=== PATIENT | male | born 1950 | race Caucasian/White ===

== ENCOUNTER 2020-04-15 22:30 | Emergency (ER) | payer MEDICARE, MEDICAID ==
[2020-04-15 23:04] LABS: ABSOLUTE BASOPHILS # (AUTO) 0.1 10^3/uL (0.0-0.2); ABSOLUTE EOSINOPHILS # (AUTO) 0.1 10^3/uL (0.0-0.6); ABSOLUTE LYMPHOCYTES (AUTO) 0.5 10^3/uL (0.5-4.7); ABSOLUTE MONOCYTES (AUTO) 0.5 10^3/uL (0.1-1.4); ABSOLUTE NEUT (AUTO) 5.1 10^3/uL (1.7-8.2); BASOPHILS % (AUTO) 1.1 % (0-2); EOSINOPHILS % (AUTO) 1.5 % (0-6); HEMATOCRIT 17.8 % (37.9-51.0); LYMPHOCYTES % (AUTO) 8.4 % (13-45); MEAN CORPUSCULAR HEMOGLOBIN 32.6 pg (27.0-33.4); MEAN CORPUSCULAR VOLUME 102 fl (80-97); MONOCYTES % (AUTO) 7.8 % (3-13); PLATELET COUNT 211 10^3/uL (150-450); RED BLOOD COUNT 1.75 10^6/uL (4.35-5.55); RED CELL DISTRIBUTION WIDTH 21.4 % (11.5-14.0); SEGMENTED NEUTROPHILS % (AUTO) 81.2 % (42-78); TOTAL CELLS COUNTED % (AUTO) 100 %; WHITE BLOOD COUNT 6.2 10^3/uL (4.0-10.5)
--- NOTE | 2020-04-15 23:04 | ER Document Report ---
ED General - Related Data Home Medications: Oxygen dependent at 2 L per nasal cannula, Xarelto 5 mg twice a day, vitamin C 250 mg daily, aspirin 81 mg daily, Colace twice daily, ferrous sulfate 325 mg twice a day, Flomax 0.4 mg daily, Lasix 40 mg twice daily, DuoNeb every 6 hours as needed for shortness of breath, lactulose 30 mg liters 3 times a day, Lipitor 40 mg daily, potassium 20 mEq daily, pro-stat liquid 30 mL twice a day, Spironolactone 25 mg daily, Synthroid 75 mcg daily, thiamine 100 mg daily, Ultram 50 mg every 12 hours as needed, zinc sulfate 220 mg daily <SOPHIE DE LOS SANTOS - Last Filed: 04/16/20 01:50> <KARLENE ESPINOZA JR - Last Filed: 04/16/20 04:22> - General Stated Complaint: CARDIAC ISSUE Time Seen by Provider: 04/15/20 22:41 Primary Care Provider: JAMES STYLES MD [Primary Care Provider] - Follow up as needed - [facility] Notes: Patient is a 69-year-old male, brought into the emergency department [facility]. History of present illness is obtained entirely from EMS. Evidently he was diuresed recently secondary to edema in his arms and legs. He was given a large dose of IV Lasix, his Lasix wa s improved. Evidently the patient went unresponsive tonight when being moved up in the bed. His heart rate went high, his blood pressure went low. EMS found the patient to be in V. tach. He was converted to atrial fibrillation after synchronized cardioversion by EMS. Patient denies any pain. He is on blood thinners. He states he vomits frequently, but denies any hematemesis or coffee-ground emesis. He is unsure as to whether or not his stools are dark, states he has intermittent incontinence issues. (SOPHIE DE LOS SANTOS) - Related Data Allergies/Adverse Reactions: No Known Allergies Allergy (Unverified 04/15/20 23:43) Past Medical History - General Information source: Patient, Outside Facility Records - Social History Smoking Status: Former Smoker Frequency of alcohol use: Former alcoholic - Medical History Medical History: Other - Past Medical History Cardiac Medical History: Reports: Hx Atrial Fibrillation, Hx Congestive Heart Failure, Hx DVT, Hx Hypertension, Hx Peripheral Vascular Disease, Other - V entricular tachycardia Pulmonary Medical History: Reports: Other - Pulmonary hypertension Neurological Medical History: Reports: Hx Cerebrovascular Accident Endocrine Medical History: Reports: Hx Hypothyroidism Renal/ Medical History: Reports: Hx Kidney Stones, Other - Urinary retention GI Medical History: Reports: Hx Cirrhosis, Hx Liver Failure, Other - Esophageal varices Psychiatric Medical History: Reports: Hx Dementia <SOPHIE DE LOS SANTOS - Last Filed: 04/16/20 01:50> - Social History Cigarette use (# per day): Yes Chew tobacco use (# tins/day): No Smoking Education Provided: Yes Frequency of alcohol use: Former alcoholic Lives with: Detention Family History: Reviewed & Not Pertinent <KARLENE ESPINOZA JR - Last Filed: 04/16/20 04:22> Physical Exam <SOPHIE DE LOS SANTOS - Last Filed: 04/16/20 01:50> - Vital signs Vitals: Resp Pulse Ox 18 99 04/15/20 22:33 04/15/20 22:33 - Notes Notes: This is a pale 69-year-old gentleman who appears much older than his stated age, in no acute distress. Vital signs reviewed, please refer to chart. Head is normocephalic, atraumatic. Pupils equal round, reactive to light. Neck is supple without meningismus. Heart is irregularly irregular. Lungs are clear to auscultation bilaterally. Abdomen is obese, positive fluid wave nontender, normoactive bowel sounds throughout. Extremities without cyanosis, clubbing. Posterior calves are nontender. Peripheral pulses are equal. Skin is warm and dry. Patient is awake, alert, cooperative with examiner. He is oriented to place, disoriented to person and time. (SOPHIE DE LOS SANTOS) Course - Laboratory Result Diagrams: 04/15/20 22:53 04/15/20 22:53 - Diagnostic Test Radiology reviewed: Image reviewed <SOPHIE DE LOS SANTOS - Last Filed: 04/16/20 01:50> - Laboratory Result Diagrams: 04/16/20 03:35 04/15/20 22:53 <KARLENE ESPINOZA JR - Last Filed: 04/16/20 04:22> - Re-evaluation Re-evalutation: 04/15/20 23:44 Patient presents to the emergency department for evaluation. It was reported he had an arrhythmia, he underwent synchronized cardioversion in the field. On arrival he was in atrial fibrillation. His heart rates have been between 85 and 120. His blood pressures have been low, but his maps have been 60 and above. The patient is awake and alert, if not confused. He is very pale. Laboratory investigations revealed a hemoglobin just under 6. Type and cross for 2 units was ordered. At that point rectal exam was performed, he was found to have melena. Protonix was ordered. This patient does have a known history of esophageal varices. He is on Xarelto. We do not have a surgeon on who does endoscopy, we do not have gastroenterology communication analyst. For all of these reasons, will contact another facility for transfer. 04/15/20 23:59 Patient's blood pressures remain low. His INR comes back over 2, he is also on Xarelto. Will order FFP. 04/16/20 00:[address] Barrera. He agrees that patient needs transfer to a facility with gastroenterology/endoscopy ability emergently. He asked that the patient be given octreotide and Kcentra. We will transfuse patient, try and make him more stable, and I will reach out again to [facility] to transfer the patient. Currently the patient has 2 20-gauge IVs, will have nursing attempt an 18-gauge. I have faxed order to pharmacy for K Centra 25 units/kg. Patient is currently stable. 04/16/20 01:34 Patient's blood pressure is improved to 107/56. His heart rate remains in the 60s. Blood is infusing. FFP is infusing. Given his history of alcoholic cir rhosis and varices, we will go ahead and treat with Rocephin. His chest x-ray is interpreted by radiology as showing bilateral pneumonia. The patient is oxygenating at 100% on his normal 2 L. He is not more short of breath. Clinically I do not believe that he has a bacterial pneumonia. I will get head and order a rapid COVID test to be performed prior to transfer. Patient has improved significantly. Things patient before we officially excepted (SOPHIE DE LOS SANTOS) - Vital Signs Vital signs: Temp Pulse Resp BP Pulse Ox 98.1 F 85 16 114/60 100 04/16/20 04:01 04/16/20 03:31 04/16/20 04:01 04/16/20 04:01 04/16/20 04:01 - Laboratory Laboratory results interpreted by me: 04/15/20 04/15/20 04/15/20 22:53 22:53 22:53 RBC 1.75 L Hgb 5.7 L Hct 17.8 L MCV 102 H RDW 21.4 H Plt Count Lymph % (Auto) 8.4 L Seg Neutrophils % 81.2 H PT 27.2 H Sodium 129.1 L Carbon Dioxide 21 L BUN 29 H Calcium 7.4 L Ammonia Total Protein 5.5 L Albumin 2.2 L Crossmatch 04/15/20 04/15/20 04/16/20 22:53 23:13 03:35 RBC 2.55 L Hgb 8.0 L D Hct 24.3 L MCV RDW 21.2 H Plt Count 143 L Lymph % (Auto) 7.3 L Seg Neutrophils % 83.8 H PT Sodium Carbon Dioxide BUN Calcium Ammonia < 8.7 L Total Protein Albumin Crossmatch See Detail - EKG Interpretation by Me Additional EKG results interpreted by me: 04/15/20 23:52 Atrial fibrillation with a rate of 123 bpm, PVCs noted. Left axis deviation. Low voltage across the anterior chest leads. Nonspecific ST changes, no acute changes concerning for ischemia or infarction. No old studies available for comparison. (SOPHIE DE LOS SANTOS) Critical Care Note - Critical Care Note Total time excluding time spent on procedures (mins): 50 <SOPHIE DE LOS SANTOS - Last Filed: 04/16/20 01:50> <KARLENE ESPINOZA JR - Last Filed: 04/16/20 04:22> - Critical Care Note Comments: Please note I evaluated this patient just prior to frequently taking him away from ER. This time. Is 0 418 (KARLENE ESPINOZA JR) Discharge <SOPHIE DE LOS SANTOS - Last Filed: 04/16/20 01:50> <KARLENE ESPINOZA JR - Last Filed: 04/16/20 04:22> - Discharge Clinical Impression: Severe anemia, Upper GI bleeding, Anticoagulant long-term use, Hypotension Condition: Stable Disposition: [facility] Referrals: JAMES STYLES MD [Primary Care Provider] - Follow up as needed
[2020-04-15 23:07] LABS: HEMOGLOBIN 5.7 g/dL (13.5-17.0)
[2020-04-15] MEDS ORDERED: NORMAL SALINE 250 ML IV PRN ×4 (23:13→23:55)
[2020-04-15] MEDS ORDERED: PANTOPRAZOLE SODIUM 40 MG VIAL IV ONE (23:13)
[2020-04-15 23:14] LABS: INTERNATIONAL RATION (INR) 2.47; PROTHROMBIN TIME 27.2 SEC (11.4-15.4)
[2020-04-15 23:20] LABS: ALBUMIN 2.2 g/dL (3.5-5.0); ALKALINE PHOSPHATASE 126 U/L (38-126); ANION GAP 9 (5-19); ASPARTATE AMINO TRANSFERASE 38 U/L (17-59); BILIRUBIN,DIRECT 0.2 mg/dL (0.0-0.4); BILIRUBIN,TOTAL 0.9 mg/dL (0.2-1.3); BLOOD UREA NITROGEN 29 mg/dL (7-20); CALCIUM 7.4 mg/dL (8.4-10.2); CARBON DIOXIDE 21 mmol/L (22-30); CHLORIDE 99 mmol/L (98-107); GLUCOSE 109 mg/dL (75-110); POTASSIUM 3.6 mmol/L (3.6-5.0); TOTAL PROTEIN 5.5 g/dL (6.3-8.2)
[2020-04-15] MEDS ORDERED: NORMAL SALINE 1000 ML 1,000 ML IV ONE (23:48)
--- NOTE | 2020-04-15 23:53 | RADIOLOGY REPORT (SQ) ---
EXAM DESCRIPTION: XR CHEST 1 VIEW COMPLETED DATE/TME: 04/15/2020 22:41 CLINICAL HISTORY: 69 years, Male, unresponsive episode COMPARISON: None. NUMBER OF VIEWS: TECHNIQUE: LIMITATIONS: None. FINDINGS: There is bilateral pulmonary infiltrate, right side more apparent than left, compatible with pneumonia. There is a small right pleural effusion. There is cardiomegaly. Pulmonary vascularity appears normal. The mediastinum is unremarkable. IMPRESSION: Bilateral pneumonia. copyright 2010 [employer]- All Rights Reserved
[2020-04-16] MEDS ORDERED: OCTREOTIDE ACETATE INJ/PF 100 MCG/1 ML SDV IV ONE (00:13)
[2020-04-16] MEDS ORDERED: NORMAL SALINE 500 ML with OCTREOTIDE ACETATE 500 MCG IV PRN ×2 (00:13)
[2020-04-16] MEDS ORDERED: OCTREOTIDE ACETATE INJ/PF 100 MCG/1 ML SDV ONE (00:42)
[2020-04-16] MEDS ORDERED: [UNRECOGNIZED DRUG - MIXTURE] IV ONE (00:45)
[2020-04-16] MEDS ORDERED: CEFTRIAXONE 1 GM/D5W RTU 1 GM/50 ML RTUPB IV ONE (01:35)
[2020-04-16] MEDS ORDERED: [UNRECOGNIZED DRUG - OTHER] IV ONE (02:00)
[2020-04-16] MEDS ORDERED: HUM PROTHROMBIN CPLX IV ONE (02:00)
[2020-04-16 03:53] LABS: ABSOLUTE EOSINOPHILS # (AUTO) 0.1 10^3/uL (0.0-0.6); ABSOLUTE LYMPHOCYTES (AUTO) 0.5 10^3/uL (0.5-4.7); ABSOLUTE MONOCYTES (AUTO) 0.5 10^3/uL (0.1-1.4); ABSOLUTE NEUT (AUTO) 5.2 10^3/uL (1.7-8.2); BASOPHILS % (AUTO) 0.7 % (0-2); EOSINOPHILS % (AUTO) 0.9 % (0-6); HEMATOCRIT 24.3 % (37.9-51.0); LYMPHOCYTES % (AUTO) 7.3 % (13-45); MEAN CORPUSCULAR HEMOGLOBIN 31.3 pg (27.0-33.4); MEAN CORPUSCULAR HGB CONC 32.8 g/dL (32.0-36.0); MONOCYTES % (AUTO) 7.3 % (3-13); PLATELET COUNT 143 10^3/uL (150-450); RED BLOOD COUNT 2.55 10^6/uL (4.35-5.55); RED CELL DISTRIBUTION WIDTH 21.2 % (11.5-14.0); SEGMENTED NEUTROPHILS % (AUTO) 83.8 % (42-78); TOTAL CELLS COUNTED % (AUTO) 100 %; WHITE BLOOD COUNT 6.2 10^3/uL (4.0-10.5)
[2020-04-16 03:56] LABS: MEAN CORPUSCULAR VOLUME 95 fl (80-97)
[2020-04-16 04:38] VITALS: BP 109/58
--- NOTE | 2020-04-16 13:09 | EKG REPORT ---
SEVERITY:- ABNORMAL ECG - ATRIAL FIBRILLATION WITH RAPID VENGRICULAR RESPONSE NONSPECIFIC IVCD WITH LAD CONSIDER INFERIOR INFARCT ABNRM R PROG, CONSIDER ASMI OR LEAD PLACEMENT : Confirmed by: Tho Santana MD 16-Apr-2020 13:08:40
== END 2020-04-16 04:38 | disposition short-term general hospital (02) ==
LOC: ER 22:30
DX: D64.9 Anemia, unspecified (principal); K92.2 Gastrointestinal hemorrhage, unspecified; I95.9 Hypotension, unspecified; I49.9 Cardiac arrhythmia, unspecified; Z20.828 Contact with and (suspected) exposure to other viral communicable diseases; I11.0 Hypertensive heart disease with heart failure; I50.9 Heart failure, unspecified; F17.210 Nicotine dependence, cigarettes, uncomplicated; F03.90 Unspecified dementia, unspecified severity, without behavioral disturbance, psychotic disturbance, mood disturbance, and anxiety; Z79.02 Long term (current) use of antithrombotics/antiplatelets; Z99.81 Dependence on supplemental oxygen; Z87.442 Personal history of urinary calculi; Z86.718 Personal history of other venous thrombosis and embolism
CPT/HCPCS: 93005; 99291; 96361; 96375; 96365; 86900; 86901; 36415; 36430; 86850; 82140; 85025; 85610; 82270; 80053; 84484; 86920; 71045; 93010; P9017; P9016; U0003; A9270 ×2; C9113; J7030; J0696; C9132 ×2; C9803; 87635; J2354; J3490

== ENCOUNTER 2020-05-19 12:32 | Inpatient (IN) | payer MEDICARE, MEDICAID ==
[2020-05-19 13:27] LABS: ABSOLUTE LYMPHOCYTES (AUTO) 0.4 10^3/uL (0.5-4.7); ABSOLUTE MONOCYTES (AUTO) 0.4 10^3/uL (0.1-1.4); ABSOLUTE NEUT (AUTO) 6.5 10^3/uL (1.7-8.2); BASOPHILS % (AUTO) 0.2 % (0-2); EOSINOPHILS % (AUTO) 0.3 % (0-6); HEMATOCRIT 36.5 % (37.9-51.0); HEMOGLOBIN 11.8 g/dL (13.5-17.0); LYMPHOCYTES % (AUTO) 5.4 % (13-45); MEAN CORPUSCULAR HEMOGLOBIN 30.5 pg (27.0-33.4); MEAN CORPUSCULAR HGB CONC 32.3 g/dL (32.0-36.0); MEAN CORPUSCULAR VOLUME 95 fl (80-97); PLATELET COUNT 108 10^3/uL (150-450); RED BLOOD COUNT 3.86 10^6/uL (4.35-5.55); RED CELL DISTRIBUTION WIDTH 19.5 % (11.5-14.0); SEGMENTED NEUTROPHILS % (AUTO) 88.1 % (42-78); TOTAL CELLS COUNTED % (AUTO) 100 %; WHITE BLOOD COUNT 7.4 10^3/uL (4.0-10.5)
[2020-05-19 13:35] LABS: VENOUS BLOOD BASE EXCESS -1.3 mmol/L; VENOUS BLOOD HCO3 23.7 mmol/L (20-32); VENOUS BLOOD PCO2 40.7 mmHg (35-63); VENOUS BLOOD PH 7.38 (7.30-7.42)
[2020-05-19 13:42] LABS: INTERNATIONAL RATION (INR) 1.28; PROTHROMBIN TIME 16.2 SEC (11.4-15.4)
[2020-05-19 14:14] LABS: ALBUMIN 2.3 g/dL (3.5-5.0); ALKALINE PHOSPHATASE 205 U/L (38-126); ANION GAP 6 (5-19); ASPARTATE AMINO TRANSFERASE 60 U/L (17-59); BILIRUBIN,DIRECT 0.2 mg/dL (0.0-0.4); BILIRUBIN,TOTAL 0.7 mg/dL (0.2-1.3); BLOOD UREA NITROGEN 33 mg/dL (7-20); CALCIUM 8.3 mg/dL (8.4-10.2); CARBON DIOXIDE 27 mmol/L (22-30); CHLORIDE 107 mmol/L (98-107); GLUCOSE 110 mg/dL (75-110); POTASSIUM 4.4 mmol/L (3.6-5.0); TOTAL PROTEIN 6.2 g/dL (6.3-8.2)
[2020-05-19] MEDS ORDERED: VANCOMYCIN HCL INJ 1000 MG VIAL IV ONE (14:23)
[2020-05-19 14:57] LABS: APPEARANCE,URINE TURBID; BILIRUBIN,URINE NEGATIVE (NEGATIVE); COLOR,URINE AMBER; GLUCOSE, URINE NEGATIVE (NEGATIVE); KETONES,URINE NEGATIVE (NEGATIVE); LEUKOCYTE ESTERASE,URINE LARGE (NEGATIVE); NITRITE,URINE NEGATIVE (NEGATIVE); PROTEIN,URINE 100 mg/dL (NEGATIVE); URINE SPECIFIC GRAVITY 1.013; UROBILINOGEN,URINE NEGATIVE mg/dL (<2.0)
--- NOTE | 2020-05-19 15:58 | RADIOLOGY REPORT (SQ) ---
EXAM DESCRIPTION: CHEST SINGLE VIEW IMAGES COMPLETED DATE/TIME: 05/19/2020 3:08 pm REASON FOR STUDY: cough COMPARISON: 04/15/2020 EXAM PARAMETERS: NUMBER OF VIEWS: One view. TECHNIQUE: Single frontal radiographic view of the chest acquired. RADIATION DOSE: NA LIMITATIONS: None. FINDINGS: LUNGS AND PLEURA: Previously demonstrated mixed interstitial and airspace opacities appear somewhat improved in the study interval. No new focal consolidation. Small bilateral pleural effus ions. No pneumothorax. MEDIASTINUM AND HILAR STRUCTURES: No masses. Contour normal. HEART AND VASCULAR STRUCTURES: Diminished cardiomegaly. No central vascular congestion. BONES: No acute findings. HARDWARE: None in the chest. OTHER: No other significant finding. IMPRESSION: Improved radiographic appearance of the chest demonstrating persistent versus recurrent mixed interstitial and airspace opacities. Differential considerations include early CHF exacerbatio n, atypical infection, interstitial lung disease. TECHNICAL DOCUMENTATION: JOB ID: [id number] 2010 [employer]- All Rights Reserved Reading location - IP/workstation name: [email or web address]
--- NOTE | 2020-05-19 16:00 | RADIOLOGY REPORT (SQ) ---
EXAM DESCRIPTION: KNEE RIGHT 3 VIEWS IMAGES COMPLETED DATE/TIME: 05/19/2020 3:09 pm REASON FOR STUDY: ? necrosis COMPARISON: None. NUMBER OF VIEWS: Three views. TECHNIQUE: AP, lateral, and sunrise patella radiographic images acquired of the right knee. LIMITATIONS: None. FINDINGS: MINERALIZATION: Osteopenia. BONES: No acute fracture or dislocation. No worrisome bone lesions. Incidental note is made of fam llar enthesopathy. Mild tricompartmental degenerative changes are present. JOINT: No effusion. SOFT TISSUES: No soft tissue swelling. No radio-opaque foreign body. OTHER: No other significant finding. IMPRESSION: No evidence of acute osseous injury. Background of mild tricompartmental degenerative c hanges. TECHNICAL DOCUMENTATION: JOB ID: [id number] 2010 [employer]- All Rights Reserved Reading location - IP/workstation name: [email or web address]
[2020-05-19] MEDS ORDERED: NORMAL SALINE 500 ML IV ONE (16:09)
[2020-05-19] MEDS ORDERED: NORMAL SALINE 1000 ML 1,000 ML IV PRN (16:09)
[2020-05-19] MEDS ORDERED: CEFTRIAXONE INJ 1000 MG VIAL IV ONE (16:10)
--- NOTE | 2020-05-19 17:41 | ER Document Report ---
ED General - General Chief Complaint: Knee Pain Stated Complaint: KNEE INFECTION Time Seen by Provider: 05/19/20 13:59 Mode of Arrival: Stretcher Information source: Emergency Med Personnel, Outside Facility Records Cannot obtain history due to: Altered mental status Notes: Patient is a 69-year-old male comes emergency room via EMS from [facility]. It is reported that patient has been having difficulty for the past month with a right knee infection and is currently on antibiotics according to the notes. They state he has had a loss of weight of approximately 20 pounds in less than a month. He has had altered mental status as far as communication goes. Patient is acting different according to what EMS reports. This is why patient was sent into the emergency room from [facility]. Patient has a significant past medical history that includes peripheral vascular disease alcoholic cirrhosis of the liver, chronic hepatic failure, urine retention, chronic anemia, hyponatremia, chronic atrial fibrillation, patient is a former smoker. TRAVEL OUTSIDE OF THE [place] IN LAST 30 DAYS: No - HPI Onset: Other - Past month worse the past week. Onset/Duration: Gradual, Persistent, Worse Quality of pain: Achy Severity: Moderate Pain Level: 3 Associated symptoms: Nonproductive cough, Fever, Weakness. denies: Diarrhea, Nausea, Rhinnorhea, Sore throat, Sweating Exacerbated by: Denies Relieved by: Denies Similar symptoms previously: Yes Recently seen / treated by doctor: Yes - Related Data Allergies/Adverse Reactions: No Known Allergies Allergy (Verified 05/19/20 12:42) Past Medical History - General Information source: Patient, Emergency Med Personnel, [facility] Records, Outside Facility Records - Social History Smoking Status: Former Smoker Chew tobacco use (# tins/day): No Frequency of alcohol use: None Drug Abuse: None Lives with: [facility] Family History: Reviewed & Not Pertinent Patient has homicidal ideation: No - Past Medical History Cardiac Medical History: Reports: Hx Atrial Fibrillation, Hx Congestive Heart Failure, Hx DVT, Hx Hypertension, Hx Peripheral Vascular Disease Neurological Medical History: Reports: Hx Cerebrovascular Accident Endocrine Medical History: Reports: Hx Hypothyroidism Renal/ Medical History: Reports: Hx Kidney Stones GI Medical History: Reports: Hx Cirrhosis, Hx Liver Failure Psychiatric Medical History: Reports: Hx Dementia Review of Systems - Review of Systems Constitutional: See HPI, Chills, Fever, Malaise, Weakness, Weight loss, Recent illness EENT: See HPI - [facility] right Cardiovascular: No symptoms reported Respiratory: No symptoms reported Gastrointestinal: No symptoms reported Genitourinary: No symptoms reported Male Genitourinary: No symptoms reported Musculoskeletal: No symptoms reported, Joint pain, Joint swelling Skin: See HPI Hematologic/Lymphatic: No symptoms reported Neurological/Psychological: Confusion -: Yes All other systems reviewed and negative Physical Exam - Vital signs Vitals: Temp Pulse Resp BP Pulse Ox 97.9 F 59 L 20 98/53 L 99 05/19/20 12:39 05/19/20 12:39 05/19/20 12:39 05/19/20 12:39 05/19/20 12:39 Interpretation: Hypotensive, Bradycardic - Notes Notes: PHYSICAL EXAMINATION: GENERAL: Patient is an ill-appearing 69-year-old male though no apparent distress is slightly confused on examination this afternoon. Patient is frail- appearing as well. And patient is slightly diaphoretic. HEAD: Patient displays some bitemporal wasting EYES: Pupils equal round and reactive to light, extraocular movements intact, ENT: Examination head and upper airway showed lesion goes to be erythematous and edematous with some rhinorrhea noted. Patient displays bilateral nasal congestion as well. TMs are bulging but no air-fluid levels noted. Further evaluation posterior pharynx shows patient to have a very dry oral mucosa tongue is slightly enlarged but no sign of angioedema and there is no fissuring at this time. Airway is patent. NECK: Normal range of motion, supple without lymphadenopathy LUNGS:Auscultation patient's lungs show bilateral breath sounds decreased throughout no rhonchi rales or wheeze are heard. HEART: Bradycardic rate and rhythm without murmurs ABDOMEN: Examination patient's abdomen shows bowel sounds to be present all 4 quads. He is nontender to palpation. Examination of patient's extremity shows that he has movement in all extremities however patient's right knee Musculoskeletal: Unable to fully extend. He has an erythematous patella that has red discoloration to it there is no induration noted at this time. There is no fluctuance noted either at this time. Patient has decreased cap refill in nailbeds of the toes on right foot and the palpation of the knee shows it to be a little on the cool side. We were able to raise a pulse with a Doppler that appeared okay 2+. Cap refill is stated was just under 3 seconds. This it was on the right foot only. Patient displays good popliteal pulse. Further evaluation did not show any laxity but showed knobby knees secondary to wasting. Rest the patient's examination shows him to have decreased to over all the way throughout his body. In a presentation of dehydration is noted. NEUROLOGICAL: Neurologically patient has decreased communications whispers only but is unintelligible of his answers. This is been documented in the past as well. Unable to perform full neurologic examination secondary to patient's inability to participate. SKIN: Patient skin is in multiple stages of disarray as stated the right knee is the most prominent noticeable area with that being able to write erythematous or red and cool to touch. Course - Vital Signs Vital signs: Temp Pulse Resp BP Pulse Ox 97.9 F 59 L 13 113/50 L 100 05/19/20 12:39 05/19/20 12:39 05/19/20 17:01 05/19/20 17:00 05/19/20 17:00 - Laboratory Result Diagrams: 05/19/20 13:05 05/19/20 13:05 Laboratory results interpreted by me: 05/19/20 05/19/20 05/19/20 13:05 13:05 13:05 RBC 3.86 L Hgb 11.8 L Hct 36.5 L RDW 19.5 H Plt Count 108 L Lymph % (Auto) 5.4 L Absolute Lymphs (auto) 0.4 L Seg Neutrophils % 88.1 H PT 16.2 H BUN Creatinine Est GFR (MDRD) Non-Af Lactic Acid 2.3 H Calcium AST Alkaline Phosphatase Total Protein Albumin Urine Protein Urine Blood Ur Leukocyte Esterase Urine Ascorbic Acid 05/19/20 05/19/20 13:05 14:30 RBC Hgb Hct RDW Plt Count Lymph % (Auto) Absolute Lymphs (auto) Seg Neutrophils % PT BUN 33 H Creatinine 1.30 H Est GFR (MDRD) Non-Af 54 L Lactic Acid Calcium 8.3 L AST 60 H Alkaline Phosphatase 205 H Total Protein 6.2 L Albumin 2.3 L Urine Protein 100 H Urine Blood LARGE H Ur Leukocyte Esterase LARGE H Urine Ascorbic Acid 20 H Discharge - Discharge Clinical Impression: Bacteriuria with pyuria Sepsis Qualifiers: Sepsis type: sepsis due to unspecified organism Sepsis acute organ dysfunction status: unspecified Qualified Code(s): A41.9 - Sepsis, unspecified organism Condition: Serious Disposition: ADMITTED INPATIENT Admitting Provider: Sybil (Hospitalist) Unit Admitted: [facility]
[2020-05-19] MEDS ORDERED: HEPARIN SOD (PORCINE) 5,000 UNIT/ML 1 ML VIAL SUBCUT SCH (18:45)
[2020-05-19] MEDS ORDERED: NORMAL SALINE 1000 ML 1,000 ML IV ONE (18:45)
[2020-05-19] MEDS ORDERED: VANCOMYCIN HCL 0 MG in DEXTROSE 5%-WATER 250 ML IV NR (19:15)
--- NOTE | 2020-05-19 19:35 | PDOC H&P ---
History of Present Illness Admission Date/PCP: JAMES STYLES MD Patient complains of: Reports that patient has been acting differently from his assisted living History of Present Illness: RANDOLPH RAMOS is a 69 year old male with PMH significant for A. 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 According to the notes the patient has lost approximately 20 pounds in the preceding month. He has been undergoing treatment with antibiotics for a right knee infection. On arrival in the ED the patient was hypotensive. Labs were obtained and he was found to have a lactic acidosis with a lactic acid of 2.3. He was given fluid boluses with improvement in his blood pressure initially however, at the time of the evaluation by the hospitalist his blood pressure had drifted down with a systolic in the 60s. An additional 1 liter of IVF was ordered at that time. A right knee x-ray was completed which revealed no evidence of acute osseous injury. There was background mild tricompartmental degenerative changes. Additionally, a CXR was completed which revealed persistent versus recurrent mixed interstitial and space opacities which could represent early CHF, atypical infection, or interstitial lung disease. He also was noted to have small bilateral pleural effusions. The patient was admitted for further evaluation and treatment. Past Medical History Medical History: Other - Patient is altered mental status and PMH was obtained from prior H&P Cardiac Medical History: Reports: Atrial Fibrillation, Congestive Heart Failure, DVT, Hypertension, Peripheral Vascular Disease Pulmonary Medical History: Reports: None EENT Medical History: Reports: Cataracts Neurological Medical History: Reports: Other - Lumbar remote CVA Endocrine Medical History: Reports: Hypothyroidism Renal/ Medical History: Reports: None Malignancy Medical History: Reports: None GI Medical History: Reports: Cirrhosis Musculoskeltal Medical History: Reports: None Skin Medical History: Reports: None Psychiatric Medical History: Reports: Dementia Traumatic Medical History: Reports: None Hematology: Reports: Anemia Past Surgical History Past Surgical History: Reports: Carotid Endarterectomy, Other - Cataract surgery Social History Information Source: Outside Facility Records Lives with: [facility] Smoking Status: Former Smoker Electronic Cigarette use?: No Frequency of Alcohol Use: None Hx Recreational Drug Use: No Hx Prescription Drug Abuse: No Family History Family History: Reviewed & Not Pertinent Parental Family History Reviewed: Yes - Mother -aneurysm repair, Father - HTN/arthritis Children Family History Reviewed: No Sibling(s) Family History Reviewed.: No Medication/Allergy Home Medications: Amino AC/Protein Hydr/Whey Pro [Prosource Plus Liquid Packet] 30 ml PO BID 05/01 06/20 Ascorbic Acid [Vitamin C] 250 mg PO DAILY 05/19/20 Aspirin [Ecotrin 81 mg EC Tablet] 81 mg PO DAILY 05/19/20 Atorvastatin Calcium [Lipitor 40 mg Tablet] 40 mg PO QHS 05/19/20 Collagenase Clostridium Hist. [Santyl Ointment 30 gm] 1 applic TP DAILY 05/19/20 Digoxin [Digox] 250 mcg PO DAILY 05/19/20 Docusate Sodium [Colace 100 mg Capsule] 100 mg PO BIDP PRN 05/19/20 Ferrous Sulfate [Feosol 325 mg Tablet] 325 mg PO BID 05/19/20 Folic Acid [Folvite 1 mg Tablet] 1 mg PO DAILY 05/19/20 Furosemide [Lasix 40 mg Tablet] 40 mg PO DAILY 05/19/20 Ipratropium/Albuterol Sulfate [Duoneb 3 ml Ampul] 3 ml NEB RTQ6 05/19/20 Lactulose [Cephulac 20 gm/30 ml Syrup UD Cup] 20 gm PO BID 05/19/20 Multivitamin with Minerals [One Daily Plus Minerals] 1 each PO DAILY 05/19/20 Nystatin [Mycostatin Ointment] 1 applic TP BID 05/19/20 Ondansetron HCl 4 mg PO Q8HP PRN 05/19/20 Pantoprazole Sodium [Protonix [address] Tablet] 40 mg PO BID 05/19/20 Potassium Chloride 20 meq PO DAILY 05/19/20 Sennosides [Senna] 8.6 mg PO DAILY 05/19/20 Sertraline HCl 25 mg PO DAILY 05/19/20 Spironolactone [Aldactone 25 mg Tablet] 25 mg PO DAILY 05/19/20 Tamsulosin HCl [Flomax 0.4 mg Cap.sr] 0.4 mg PO DAILY 05/19/20 Thiamine HCl [Thiamine 100 mg Tablet] 100 mg PO DAILY 05/19/20 Tramadol HCl [Ultram 50 mg Tablet] 50 mg PO Q12HP PRN 05/19/20 Zinc Sulfate [Zinc-220 Capsule] 220 mg PO DAILY 05/19/20 Allergies/Adverse Reactions: No Known Allergies Allergy (Verified 05/19/20 12:42) Review of Systems ROS unobtainable: Due to mental status - Per report from assisted living/SNF patient has had a 20 pound weight loss in the preceding month Physical Exam Vital Signs: Temp Pulse Resp BP Pulse Ox 97.9 F 59 L 13 113/50 L 100 05/19/20 12:39 05/19/20 12:39 05/19/20 17:01 05/19/20 17:00 05/19/20 17:00 Intake & Output 05/18/20 05/19/20 05/20/20 06:59 06:59 06:59 Intake Total 1000 Balance 1000 General appearance: PRESENT: no acute distress, cooperative, well-developed Head exam: PRESENT: atraumatic, normocephalic Eye exam: PRESENT: conjunctiva pink. ABSENT: scleral icterus Ear exam: PRESENT: normal external ear exam Mouth exam: PRESENT: dry mucosa, tongue midline Neck exam: ABSENT: carotid bruit, JVD Respiratory exam: PRESENT: clear to auscultation amy, decreased breath sounds - Air entry diminished at bases bilaterally. Breath sounds coarse, symmetrical, unlabored. ABSENT: accessory muscle use, crackles, rales, rhonchi, wheezes Cardiovascular exam: PRESENT: RRR, +S1, +S2 Pulses: PRESENT: normal carotid pulses, normal radial pulses, other - Bilateral DP/PT pulses 1+/- Vascular exam: PRESENT: normal capillary refill GI/Abdominal exam: PRESENT: normal bowel sounds, soft. ABSENT: distended, guarding, tenderness Rectal exam: PRESENT: deferred Extremities exam: ABSENT: calf tenderness, pedal edema Neurological exam: PRESENT: alert, other - Encephalopathic. STUBBS to command and ad haroon. And really weak and deconditioned with mild right-sided weakness Psychiatric exam: ABSENT: agitated, anxious Skin exam: PRESENT: dry, normal color - Right knee with scabbed area. No erythema or exudate. Scattered ecchymosis of bilateral upper extremities., warm. ABSENT: jaundice Results Laboratory Results: 05/19/20 13:05 05/19/20 13:05 05/19/20 05/19/20 05/19/20 13:05 13:05 13:05 WBC 7.4 RBC 3.86 L Hgb 11.8 L Hct 36.5 L MCV 95 MCH 30.5 MCHC 32.3 RDW 19.5 H Plt Count 108 L Seg Neutrophils % 88.1 H VBG pH VBG pCO2 VBG HCO3 VBG Base Excess Sodium 140.2 Potassium 4.4 Chloride 107 Carbon Dioxide 27 Anion Gap 6 BUN 33 H Creatinine 1.30 H Est GFR ( Amer) > 60 Glucose 110 Lactic Acid 2.3 H Calcium 8.3 L Total Bilirubin 0.7 AST 60 H Alkaline Phosphatase 205 H Total Protein 6.2 L Albumin 2.3 L Urine Color Urine Appearance Urine pH Ur Specific [place] Urine Protein Urine Glucose (UA) Urine Ketones Urine Blood Urine Nitrite Ur Leukocyte Esterase Urine WBC (Auto) Urine RBC (Auto) 05/19/20 05/19/20 05/19/20 13:05 14:30 17:28 WBC RBC Hgb Hct MCV MCH MCHC RDW Plt Count Seg Neutrophils % VBG pH 7.38 VBG pCO2 40.7 VBG HCO3 23.7 VBG Base Excess -1.3 Sodium Potassium Chloride Carbon Dioxide Anion Gap BUN Creatinine Est GFR ( Amer) Glucose Lactic Acid 1.6 Calcium Total Bilirubin AST Alkaline Phosphatase Total Protein Albumin Urine Color ROLA Urine Appearance TURBID Urine pH 6.0 Ur Specific [place] 1.013 Urine Protein 100 H Urine Glucose (UA) NEGATIVE Urine Ketones NEGATIVE Urine Blood LARGE H Urine Nitrite NEGATIVE Ur Leukocyte Esterase LARGE H Urine WBC (Auto) >182 Urine RBC (Auto) 106 Impressions: Chest X-Ray 05/19/20 14:24 IMPRESSION: Improved radiographic appearance of the chest demonstrating persistent versus recurrent mixed interstitial and airspace opacities. Di fferential considerations include early CHF exacerbation, atypical infection, interstitial lung disease. Knee X-Ray 05/19/20 14:28 IMPRESSION: No evidence of acute osseous injury. Background of mild tricompartmental degenerative changes. Assessment and Plan - Diagnosis (1) Severe sepsis Is this a current diagnosis for this admission?: Yes Plan: Continue vancomycin per pharmacy protocol Continue ceftriaxone 1 g IV every 24 hours Volume resuscitate PRN, will have to be cautious with volume given patient's compromised LV function If BP does not respond with IVF we will need to consider pressor support, patient currently only has PIV and will need central line if pressor support is necessary (2) Bacteriuria with pyuria Is this a current diagnosis for this admission?: Yes Plan: Antibiotics as noted above (3) Encephalopathy Is this a current diagnosis for this admission?: Yes Plan: Patient's baseline mental status is unknown Worsening encephalopathy likely 2/2 above (4) KIRSTIE (acute kidney injury) Is this a current diagnosis for this admission?: Yes Plan: Related to acute infection Avoid nephrotoxins Monitor (5) Anemia Is this a current diagnosis for this admission?: Yes Plan: Anemia is chronic Continue FeSO4 325 mg p.o. twice daily Monitor (6) Thrombocytopenia Is this a current diagnosis for this admission?: Yes Plan: Likely related to liver disease Patient has scattered ecchymosis over UEs, no overt sign of active hemorrhage No treatment indicated Monitor (7) Dilated cardiomyopathy Is this a current diagnosis for this admission?: Yes Plan: We will need to monitor volume status closely (8) Chronic systolic heart failure Is this a current diagnosis for this admission?: Yes Plan: Patient's chest x-ray is concerning for early CHF however volume resuscitation was priority initially Daily weight Strict I/O Hold digoxin for now given KIRTSIE (9) Alcoholic liver disease Is this a current diagnosis for this admission?: Yes Plan: LFTs acceptable Continue lactulose 20 g p.o. twice daily Supportive care (10) PVD (peripheral vascular disease) Is this a current diagnosis for this admission?: Yes Plan: Continue atorvastatin 40 mg p.o. daily - Plan Summary Summary: Patient is admitted as full code until we are able to determine if he has directive mandates otherwise - Time Time Spent with patient: 35 or more minutes Medications reviewed and adjusted accordingly: Yes Anticipated Discharge Disposition: [facility]way Facility Anticipated Discharge Timeframe: TBD
[2020-05-19 19:44] LABS: BLOOD UREA NITROGEN 29 mg/dL (7-20); CALCIUM 7.3 mg/dL (8.4-10.2); GLUCOSE 96 mg/dL (75-110); POTASSIUM 4.5 mmol/L (3.6-5.0)
[2020-05-19 19:49] LABS: CARBON DIOXIDE 24 mmol/L (22-30); CHLORIDE 113 mmol/L (98-107)
[2020-05-19 19:52] LABS: ANION GAP 4 (5-19)
[2020-05-19] MEDS: ATORVASTATIN CALCIUM 40 MG TABLET PO SCH (22:13)
[2020-05-19] MEDS: HEPARIN SOD (PORCINE) 5,000 UNIT/ML 1 ML VIAL SUBCUT SCH (22:17)
[2020-05-20] MEDS ORDERED: RINGERS SOLUTION,LACTATED 1,000 ML IV PRN (00:20)
[2020-05-20] MEDS: HEPARIN SOD (PORCINE) 5,000 UNIT/ML 1 ML VIAL SUBCUT SCH ×3 (05:18→21:22)
[2020-05-20] MEDS: VANCOMYCIN HCL 1,000 MG in DEXTROSE 5%-WATER 250 ML IV SCH ×2 (05:18→18:22)
[2020-05-20 06:24] LABS: ALBUMIN 1.9 g/dL (3.5-5.0); ALKALINE PHOSPHATASE 155 U/L (38-126); ASPARTATE AMINO TRANSFERASE 53 U/L (17-59); BILIRUBIN,DIRECT 0.1 mg/dL (0.0-0.4); BILIRUBIN,TOTAL 0.5 mg/dL (0.2-1.3); TOTAL PROTEIN 5.3 g/dL (6.3-8.2)
[2020-05-20 07:39] LABS: ABSOLUTE EOSINOPHILS # (AUTO) 0.1 10^3/uL (0.0-0.6); ABSOLUTE LYMPHOCYTES (AUTO) 0.3 10^3/uL (0.5-4.7); ABSOLUTE MONOCYTES (AUTO) 0.3 10^3/uL (0.1-1.4); BASOPHILS % (AUTO) 0.7 % (0-2); EOSINOPHILS % (AUTO) 2.3 % (0-6); HEMATOCRIT 29.1 % (37.9-51.0); LYMPHOCYTES % (AUTO) 5.9 % (13-45); MEAN CORPUSCULAR HGB CONC 33.1 g/dL (32.0-36.0); MEAN CORPUSCULAR VOLUME 94 fl (80-97); MONOCYTES % (AUTO) 5.6 % (3-13); RED BLOOD COUNT 3.11 10^6/uL (4.35-5.55); RED CELL DISTRIBUTION WIDTH 19.5 % (11.5-14.0); SEGMENTED NEUTROPHILS % (AUTO) 85.5 % (42-78); TOTAL CELLS COUNTED % (AUTO) 100 %; WHITE BLOOD COUNT 5.9 10^3/uL (4.0-10.5)
[2020-05-20 08:45] LABS: HEMOGLOBIN 9.6 g/dL (13.5-17.0)
[2020-05-20 08:48] LABS: PLATELET COUNT 80 10^3/uL (150-450)
--- NOTE | 2020-05-20 09:54 | EKG REPORT ---
SEVERITY:- ABNORMAL ECG - A FIB VENTRICULAR PREMATURE COMPLEX LOW VOLTAGE FRONTAL LEADS NONSPECIFIC ST-T CHANGES : Confirmed by: Kaley Hayden 20-May-2020 09:53:31
[2020-05-20] MEDS ORDERED: (PENDING PHARMACY ID) (Ascorbic Acid [Vitamin C] 250 MG) PO SCH (10:00)
[2020-05-20] MEDS ORDERED: (PENDING PHARMACY ID) (Multivitamin With Minerals [One Daily Plus Minerals] 1 EACH) PO SCH (10:00)
[2020-05-20] MEDS ORDERED: (PENDING PHARMACY ID) (Sertraline Hcl [Sertraline Hcl] 25 MG) PO SCH (10:00)
[2020-05-20] MEDS: FERROUS SULFATE 325 MG TABLET PO SCH ×2 (10:15→18:21)
[2020-05-20] MEDS: LACTULOSE SYRUP 20 GM/30 ML UDCUP PO SCH ×2 (10:15→18:21)
[2020-05-20] MEDS: SERTRALINE HCL 50 MG TABLET PO SCH (10:15)
[2020-05-20] MEDS: ASCORBIC ACID 500 MG TABLET PO SCH (10:16)
[2020-05-20] MEDS: PANTOPRAZOLE SODIUM 40 MG TABLET.DR PO SCH ×2 (10:17→18:21)
[2020-05-20] MEDS: ASPIRIN 81 MG TABLET, ENT COATED PO SCH (10:17)
[2020-05-20] MEDS: FOLIC ACID 1 MG TABLET PO SCH (10:17)
[2020-05-20] MEDS: ZINC SULFATE 220 MG CAPSULE PO SCH (10:18)
[2020-05-20] MEDS: MULTIVITAMIN TABLET PO SCH (10:18)
[2020-05-20] MEDS: COLLAGENASE CLOSTRIDIUM HIST. OINT 30 GM TP SCH (10:18)
[2020-05-20] MEDS: THIAMINE HCL 100 MG TABLET PO SCH (10:22)
[2020-05-20 11:43] LABS: ANION GAP 5 (5-19); BLOOD UREA NITROGEN 28 mg/dL (7-20); CALCIUM 7.6 mg/dL (8.4-10.2); CARBON DIOXIDE 21 mmol/L (22-30); CHLORIDE 112 mmol/L (98-107); POTASSIUM 4.2 mmol/L (3.6-5.0)
--- NOTE | 2020-05-20 11:48 | CDI QUERY ---
CDI Query CDI Review: Dear Provider, please further specify ''ENCEPHALOPATHY" ACUTE METABOLIC ENCEPHALOPATHY ACUTE TOXIC ENCEPHALOPATHY OTHER UNABLE TO DETERMINE clinical data: (3) Encephalopathy Is this a current diagnosis for this admission?: Yes Plan: Patient's baseline mental status is unknown Worsening encephalopathy likely 2/2 above Thanks Michelle Porras CDI [phone]
[2020-05-20 11:52] LABS: GLUCOSE 69 mg/dL (75-110)
--- NOTE | 2020-05-20 12:00 | PDOC PROGRESS REPORT ---
Subjective Progress Note for:: 05/20/20 Subjective:: Patient does not offer meaningful conversation. He seems delirious. He also has some dysarthria which makes it difficult to understand what he is saying Reason For Visit: SEVERE SEPSIS Physical Exam Vital Signs: Temp Pulse Resp BP Pulse Ox 97.2 F 78 19 116/91 H 96 05/20/20 07:25 05/20/20 07:25 05/20/20 07:25 05/20/20 07:25 05/20/20 07:25 Intake & Output 05/19/20 05/20/20 05/21/20 06:59 06:59 06:59 Intake Total 2260 Output Total 600 Balance 1660 Weight 74.8 kg General appearance: PRESENT: no acute distress, cooperative, well-developed Head exam: PRESENT: atraumatic, normocephalic Eye exam: PRESENT: conjunctiva pink. ABSENT: scleral icterus Mouth exam: PRESENT: moist, tongue midline Neck exam: ABSENT: JVD Respiratory exam: PRESENT: decreased breath sounds - Air entry diminished at bases bilaterally, symmetrical, unlabored, other - Breath sounds coarse. ABSENT: accessory muscle use, crackles, rhonchi, wheezes Cardiovascular exam: PRESENT: RRR, +S1, +S2, other - Pedal pulses 1+/- bilaterally Vascular exam: PRESENT: normal capillary refill GI/Abdominal exam: PRESENT: normal bowel sounds, soft. ABSENT: distended, tenderness Rectal exam: PRESENT: deferred Extremities exam: ABSENT: calf tenderness, pedal edema Neurological exam: PRESENT: alert, awake, other - Encephalopathic. STUBBS to command and spontaneously. Generally weak and deconditioned with slight right- sided weakness Psychiatric exam: PRESENT: unusual affect. ABSENT: agitated, anxious Skin exam: PRESENT: dry, normal color, warm Results Laboratory Results: 05/20/20 07:15 05/19/20 05/19/20 05/19/20 13:05 13:05 13:05 WBC 7.4 RBC 3.86 L Hgb 11.8 L Hct 36.5 L MCV 95 MCH 30.5 MCHC 32.3 RDW 19.5 H Plt Count 108 L Seg Neutrophils % 88.1 H VBG pH VBG pCO2 VBG HCO3 VBG Base Excess Sodium 140.2 Potassium 4.4 Chloride 107 Carbon Dioxide 27 Anion Gap 6 BUN 33 H Creatinine 1.30 H Est GFR ( Amer) > 60 Est GFR (Non-Af Amer) Glucose 110 Lactic Acid 2.3 H Calcium 8.3 L Total Bilirubin 0.7 AST 60 H Alkaline Phosphatase 205 H Total Protein 6.2 L Albumin 2.3 L Urine Color Urine Appearance Urine pH Ur Specific [place] Urine Protein Urine Glucose (UA) Urine Ketones Urine Blood Urine Nitrite Ur Leukocyte Esterase Urine WBC (Auto) Urine RBC (Auto) 05/19/20 05/19/20 05/19/20 13:05 14:30 17:28 WBC RBC Hgb Hct MCV MCH MCHC RDW Plt Count Seg Neutrophils % VBG pH 7.38 VBG pCO2 40.7 VBG HCO3 23.7 VBG Base Excess -1.3 Sodium Potassium Chloride Carbon Dioxide Anion Gap BUN Creatinine Est GFR ( Amer) Est GFR (Non-Af Amer) Glucose Lactic Acid 1.6 Calcium Total Bilirubin AST Alkaline Phosphatase Total Protein Albumin Urine Color ROLA Urine Appearance TURBID Urine pH 6.0 Ur Specific [place] 1.013 Urine Protein 100 H Urine Glucose (UA) NEGATIVE Urine Ketones NEGATIVE Urine Blood LARGE H Urine Nitrite NEGATIVE Ur Leukocyte Esterase LARGE H Urine WBC (Auto) >182 Urine RBC (Auto) 106 05/19/20 05/19/20 05/20/20 19:00 20:05 05:36 WBC Cancelled RBC Cancelled Hgb Cancelled Hct Cancelled MCV Cancelled MCH Cancelled MCHC Cancelled RDW Cancelled Plt Count Cancelled Seg Neutrophils % Cancelled VBG pH VBG pCO2 VBG HCO3 VBG Base Excess Sodium 140.8 Potassium 4.5 Chloride 113 H Carbon Dioxide 24 Anion Gap 4 L BUN 29 H Creatinine 1.02 Est GFR ( Amer) > 60 Est GFR (Non-Af Amer) Glucose 96 Lactic Acid 1.2 Calcium 7.3 L Total Bilirubin AST Alkaline Phosphatase Total Protein Albumin Urine Color Urine Appearance Urine pH Ur Specific [place] Urine Protein Urine Glucose (UA) Urine Ketones Urine Blood Urine Nitrite Ur Leukocyte Esterase Urine WBC (Auto) Urine RBC (Auto) 05/20/20 05/20/20 05/20/20 05:36 05:36 07:15 WBC RBC Hgb Hct MCV MCH MCHC RDW Plt Count Seg Neutrophils % VBG pH VBG pCO2 VBG HCO3 VBG Base Excess Sodium Cancelled Potassium Cancelled Chloride Cancelled Carbon Dioxide Cancelled Anion Gap Cancelled BUN Cancelled Creatinine Cancelled Est GFR ( Amer) Cancelled Est GFR (Non-Af Amer) Cancelled Glucose Cancelled Lactic Acid 1.7 Calcium Cancelled Total Bilirubin 0.5 AST 53 Alkaline Phosphatase 155 H Total Protein 5.3 L Albumin 1.9 L Urine Color Urine Appearance Urine pH Ur Specific [place] Urine Protein Urine Glucose (UA) Urine Ketones Urine Blood Urine Nitrite Ur Leukocyte Esterase Urine WBC (Auto) Urine RBC (Auto) 05/20/20 07:15 WBC 5.9 RBC 3.11 L Hgb 9.6 L D Hct 29.1 L MCV 94 MCH 31.0 MCHC 33.1 RDW 19.5 H Plt Count 80 L Seg Neutrophils % 85.5 H VBG pH VBG pCO2 VBG HCO3 VBG Base Excess Sodium Potassium Chloride Carbon Dioxide Anion Gap BUN Creatinine Est GFR ( Amer) Est GFR (Non-Af Amer) Glucose Lactic Acid Calcium Total Bilirubin AST Alkaline Phosphatase Total Protein Albumin Urine Color Urine Appearance Urine pH Ur Specific [place] Urine Protein Urine Glucose (UA) Urine Ketones Urine Blood Urine Nitrite Ur Leukocyte Esterase Urine WBC (Auto) Urine RBC (Auto) 05/20/20 05:36 NT-Pro-B Natriuret Pep 3350 H Impressions: Chest X-Ray 05/19/20 14:24 IMPRESSION: Improved radiographic appearance of the chest demonstrating persistent versus recurrent mixed interstitial and airspace opacities. Differential considerations include early CHF exacerbation, atypical infection, interstitial lung disease. Knee X-Ray 05/19/20 14:28 IMPRESSION: No evidence of acute osseous injury. Background of mild tricompart mental degenerative changes. Assessment and Plan - Diagnosis (1) Severe sepsis Is this a current diagnosis for this admission?: Yes Plan: Improved, patient no longer hypotensive Continue vancomycin per pharmacy protocol Continue ceftriaxone 1 g IV every 24 hours Blood and urine cultures pending Continue IVF but decrease to 50 cc/h, patient is taking some po (2) Bacteriuria with pyuria Is this a current diagnosis for this admission?: Yes Plan: Antibiotics as noted above Awaiting urine culture results (3) Encephalopathy Is this a current diagnosis for this admission?: Yes Plan: Patient's baseline mental status is unknown Worsening encephalopathy likely 2/2 above (4) KIRSTIE (acute kidney injury) Is this a current diagnosis for this admission?: Yes Plan: Related to acute infection Morning labs still pending however renal function had already improved last p.m. after fluid resuscitation Avoid nephrotoxins Monitor (5) Anemia Is this a current diagnosis for this admission?: Yes Plan: Anemia is chronic Approximately 2 g drop in hemoglobin since admission however this does represent a delusional component as patient presented volume depleted - he appears to be close to his historic baseline Continue FeSO4 325 mg p.o. twice daily Monitor (6) Thrombocytopenia Is this a current diagnosis for this admission?: Yes Plan: Related to chronic liver disease Drop in platelet count likely related to hemodilution, patient presented hemoconcentrated and is received significant volume resuscitation Patient has scattered ecchymosis over UEs, no overt sign of active hemorrhage No treatment indicated at this time but will need to monitor closely since patient is now on heparin for VTE prophylaxis (7) Dilated cardiomyopathy Is this a current diagnosis for this admission?: Yes Plan: Decrease IVF rate to 50 cc/h We will need to monitor volume status closely (8) Chronic systolic heart failure Is this a current diagnosis for this admission?: Yes Plan: Patient's chest x-ray is concerning for early CHF however volume resuscitation was priority initially Daily weight 74.8 Kg which is stable 24 hour I/O +1660 Continue to hold digoxin for now Check dig level in a.m. (9) Alcoholic liver disease Is this a current diagnosis for this admission?: Yes Plan: LFTs acceptable Continue lactulose 20 g p.o. twice daily Supportive care (10) Hypoglycemia Is this a current diagnosis for this admission?: Yes Plan: Likely multifactorial (poor p.o. intake/liver disease) Change IVF to D5NS (11) PVD (peripheral vascular disease) Is this a current diagnosis for this admission?: Yes Plan: Continue atorvastatin 40 mg p.o. daily - Plan Summary Summary: Patient is admitted as full code until we are able to determine if he has directive mandates otherwise - Time Time Spent with patient: 15-24 minutes Medications reviewed and adjusted accordingly: Yes Anticipated Discharge Disposition: [facility] Facility Anticipated Discharge Timeframe: TBD
[2020-05-20] MEDS: DEXTROSE 5%-NORMAL SALINE 1,000 ML IV PRN (12:47)
[2020-05-20] MEDS: CEFTRIAXONE 1 GM/D5W RTU 1 GM/50 ML RTUPB IV SCH (18:21)
[2020-05-20] MEDS: ATORVASTATIN CALCIUM 40 MG TABLET PO SCH (21:22)
[2020-05-21] MEDS: HEPARIN SOD (PORCINE) 5,000 UNIT/ML 1 ML VIAL SUBCUT SCH ×2 (05:41→14:07)
[2020-05-21] MEDS: VANCOMYCIN HCL 1,000 MG in DEXTROSE 5%-WATER 250 ML IV SCH (05:42)
[2020-05-21 07:12] LABS: ABSOLUTE BASOPHILS # (AUTO) 0.1 10^3/uL (0.0-0.2); ABSOLUTE EOSINOPHILS # (AUTO) 0.2 10^3/uL (0.0-0.6); ABSOLUTE LYMPHOCYTES (AUTO) 0.4 10^3/uL (0.5-4.7); ABSOLUTE MONOCYTES (AUTO) 0.3 10^3/uL (0.1-1.4); ABSOLUTE NEUT (AUTO) 4.1 10^3/uL (1.7-8.2); BASOPHILS % (AUTO) 1.5 % (0-2); EOSINOPHILS % (AUTO) 3.2 % (0-6); HEMATOCRIT 29.7 % (37.9-51.0); HEMOGLOBIN 9.7 g/dL (13.5-17.0); LYMPHOCYTES % (AUTO) 8.6 % (13-45); MEAN CORPUSCULAR HEMOGLOBIN 31.1 pg (27.0-33.4); MEAN CORPUSCULAR HGB CONC 32.6 g/dL (32.0-36.0); MEAN CORPUSCULAR VOLUME 95 fl (80-97); MONOCYTES % (AUTO) 6.1 % (3-13); RED BLOOD COUNT 3.11 10^6/uL (4.35-5.55); SEGMENTED NEUTROPHILS % (AUTO) 80.6 % (42-78); TOTAL CELLS COUNTED % (AUTO) 100 %; WHITE BLOOD COUNT 5.1 10^3/uL (4.0-10.5)
[2020-05-21 07:16] LABS: ANION GAP 6 (5-19); BLOOD UREA NITROGEN 23 mg/dL (7-20); CALCIUM 7.6 mg/dL (8.4-10.2); CARBON DIOXIDE 20 mmol/L (22-30); CHLORIDE 113 mmol/L (98-107); DIGOXIN 1.26 ng/mL (0.8-2.0); GLUCOSE 72 mg/dL (75-110); POTASSIUM 4.1 mmol/L (3.6-5.0)
[2020-05-21 07:40] LABS: VANCOMYCIN,TROUGH 20.1 ug/mL (5.0-20.0)
[2020-05-21 08:07] LABS: PLATELET COUNT 80 10^3/uL (150-450)
[2020-05-21] MEDS: SERTRALINE HCL 50 MG TABLET PO SCH (10:00)
[2020-05-21] MEDS: LACTULOSE SYRUP 20 GM/30 ML UDCUP PO SCH ×2 (10:00→17:23)
[2020-05-21] MEDS: MULTIVITAMIN TABLET PO SCH (10:00)
[2020-05-21] MEDS: FOLIC ACID 1 MG TABLET PO SCH (10:00)
[2020-05-21] MEDS: ASCORBIC ACID 500 MG TABLET PO SCH (10:01)
[2020-05-21] MEDS: ASPIRIN 81 MG TABLET, ENT COATED PO SCH (10:01)
[2020-05-21] MEDS: THIAMINE HCL 100 MG TABLET PO SCH (10:01)
[2020-05-21] MEDS: PANTOPRAZOLE SODIUM 40 MG TABLET.DR PO SCH ×2 (10:01→17:23)
[2020-05-21] MEDS: ZINC SULFATE 220 MG CAPSULE PO SCH (10:01)
[2020-05-21] MEDS: FERROUS SULFATE 325 MG TABLET PO SCH ×2 (10:01→17:23)
[2020-05-21] MEDS: COLLAGENASE CLOSTRIDIUM HIST. OINT 30 GM TP SCH (10:02)
[2020-05-21] MEDS: CEFTRIAXONE 1 GM/D5W RTU 1 GM/50 ML RTUPB IV SCH (17:23)
[2020-05-21] MEDS: VANCOMYCIN HCL 750 MG in DEXTROSE 5%-WATER 250 ML IV SCH (17:24)
[2020-05-21] MEDS: DEXTROSE 5%-NORMAL SALINE 1,000 ML IV PRN (17:36)
--- NOTE | 2020-05-21 18:45 | PDOC PROGRESS REPORT ---
Subjective Progress Note for:: 05/21/20 Subjective:: Patient remains encephalopathic. He is making statements which make no sense. He remains dysarthric. Reason For Visit: SEVERE SEPSIS Physical Exam Vital Signs: Temp Pulse Resp BP Pulse Ox 97.4 F 51 L 19 117/54 L 94 05/21/20 16:01 05/21/20 16:01 05/21/20 16:01 05/21/20 16:01 05/21/20 16:01 Intake & Output 05/20/20 05/21/20 05/22/20 06:59 06:59 06:59 Intake Total 2510 1323 1100 Output Total 600 600 Balance 3906 322 0175 Weight 74.8 kg 68.7 kg General appearance: PRESENT: no acute distress, cooperative, disheveled, well- developed Head exam: PRESENT: atraumatic, normocephalic Eye exam: PRESENT: conjunctiva pink. ABSENT: scleral icterus Mouth exam: PRESENT: moist, tongue midline Neck exam: ABSENT: JVD Respiratory exam: PRESENT: decreased breath sounds - Air entry diminished at bases bilaterally, symmetrical, unlabored, other - Breath sounds coarse but otherwise CTA. ABSENT: accessory muscle use Cardiovascular exam: PRESENT: RRR, +S1, +S2 Pulses: PRESENT: other - Pedal pulses 1+/- bilaterally Vascular exam: PRESENT: normal capillary refill GI/Abdominal exam: PRESENT: normal bowel sounds, soft. ABSENT: distended, tenderness Rectal exam: PRESENT: deferred Extremities exam: ABSENT: calf tenderness, pedal edema Neurological exam: PRESENT: awake, other - Encephalopathic Psychiatric exam: PRESENT: agitated - Very slightly agitated. Scooting around in bed and throwing legs over side Skin exam: PRESENT: dry, normal color, warm Results Laboratory Results: 05/21/20 05:33 05/21/20 05:33 05/21/20 05/21/20 05:33 05:33 WBC 5.1 RBC 3.11 L Hgb 9.7 L Hct 29.7 L MCV 95 MCH 31.1 MCHC 32.6 RDW 20.0 H Plt Count 80 L Seg Neutrophils % 80.6 H Sodium 139.2 Potassium 4.1 Chloride 113 H Carbon Dioxide 20 L Anion Gap 6 BUN 23 H Creatinine 0.86 Est GFR ( Amer) > 60 Glucose 72 L Calcium 7.6 L 05/20/20 05:36 NT-Pro-B Natriuret Pep 3350 H Impressions: Chest X-Ray 05/19/20 14:24 IMPRESSION: Improved radiographic appearance of the chest demonstrating pe rsistent versus recurrent mixed interstitial and airspace opacities. Differential considerations include early CHF exacerbation, atypical infection, interstitial lung disease. Knee X-Ray 05/19/20 14:28 IMPRESSION: No evidence of acute osseous injury. Background of mild tricompartmental degenerative changes. Assessment and Plan - Diagnosis (1) Severe sepsis Is this a current diagnosis for this admission?: Yes Plan: Improved Blood cultures 05/19/2020: NG at 48 hours Urine culture: >100,000 col/ml GPC Continue vancomycin per pharmacy protocol Stop ceftriaxone 1 g IV every 24 hours (2) Bacteriuria with pyuria Is this a current diagnosis for this admission?: Yes Plan: Antibiotics as noted above (3) Encephalopathy Is this a current diagnosis for this admission?: Yes Plan: Patient's baseline mental status is unknown Patient likely has acute metabolic encephalopathy 2/2 infection (4) KIRSTIE (acute kidney injury) Is this a current diagnosis for this admission?: Yes Plan: Renal function now WNL Monitor (5) Anemia Is this a current diagnosis for this admission?: Yes Plan: Anemia is chronic H/H remained stable after initial drop which represents a delusional component Continue FeSO4 325 mg p.o. twice daily Monitor (6) Thrombocytopenia Is this a current diagnosis for this admission?: Yes Plan: Related to chronic liver disease Patient has scattered ecchymosis over UEs, no overt sign of active hemorrhage Platelet count now less than 100, stop heparin Monitor (7) Dilated cardiomyopathy Is this a current diagnosis for this admission?: Yes Plan: IVS rate decreased to 50 cc/h, patient has had hypoglycemia and continues to need some dextrose We will need to continue to monitor volume status closely (8) Chronic systolic heart failure Is this a current diagnosis for this admission?: Yes Plan: Patient's chest x-ray is concerning for early CHF however patient does not clinically appear volume overloaded According to patient's daily weight is down 6.1 kg which is clearly not the case given his volume status 24 hour I/O + 723 Continue to hold diuretic Resume digoxin 0.25 mg p.o. daily (dig level 1.26) (9) Alcoholic liver disease Is this a current diagnosis for this admission?: Yes Plan: Continue lactulose 20 g p.o. twice daily Supportive care CMP in a.m. (10) Hypoglycemia Is this a current diagnosis for this admission?: Yes Plan: Likely multifactorial (poor p.o. intake/liver disease) Patient hypoglycemic on a.m. labs Add FS BS 6 hours Change IVF to D5W at 50 cc/h (11) PVD (peripheral vascular disease) Is this a current diagnosis for this admission?: Yes Plan: Continue atorvastatin 40 mg p.o. daily (12) BPH (benign prostatic hyperplasia) Is this a current diagnosis for this admission?: Yes Plan: Resume tamsulosin 0.4 mg p.o. daily - Plan Summary Summary: Patient is admitted as full code until we are able to determine if he has dir ective mandates otherwise - Time Time Spent with patient: 15-24 minutes Medications reviewed and adjusted accordingly: Yes Anticipated Discharge Disposition: Care Home Facility Anticipated Discharge Timeframe: TBD
[2020-05-21] MEDS: ATORVASTATIN CALCIUM 40 MG TABLET PO SCH (23:03)
[2020-05-22] MEDS: DEXTROSE 5%-WATER 1000 ML 1,000 ML IV PRN ×2 (01:09→23:16)
[2020-05-22] MEDS: VANCOMYCIN HCL 750 MG in DEXTROSE 5%-WATER 250 ML IV SCH ×2 (05:30→18:05)
[2020-05-22 07:25] LABS: ABSOLUTE BASOPHILS # (AUTO) 0.1 10^3/uL (0.0-0.2); ABSOLUTE EOSINOPHILS # (AUTO) 0.2 10^3/uL (0.0-0.6); ABSOLUTE LYMPHOCYTES (AUTO) 0.5 10^3/uL (0.5-4.7); ABSOLUTE MONOCYTES (AUTO) 0.3 10^3/uL (0.1-1.4); ABSOLUTE NEUT (AUTO) 4.8 10^3/uL (1.7-8.2); HEMATOCRIT 29.8 % (37.9-51.0); HEMOGLOBIN 9.8 g/dL (13.5-17.0); LYMPHOCYTES % (AUTO) 8.8 % (13-45); MEAN CORPUSCULAR HEMOGLOBIN 31.4 pg (27.0-33.4); MEAN CORPUSCULAR HGB CONC 33.1 g/dL (32.0-36.0); MEAN CORPUSCULAR VOLUME 95 fl (80-97); MONOCYTES % (AUTO) 5.2 % (3-13); RED BLOOD COUNT 3.14 10^6/uL (4.35-5.55); RED CELL DISTRIBUTION WIDTH 19.7 % (11.5-14.0); TOTAL CELLS COUNTED % (AUTO) 100 %; WHITE BLOOD COUNT 5.9 10^3/uL (4.0-10.5)
[2020-05-22 07:53] LABS: ALBUMIN 1.9 g/dL (3.5-5.0); ALKALINE PHOSPHATASE 214 U/L (38-126); ASPARTATE AMINO TRANSFERASE 69 U/L (17-59); BILIRUBIN,DIRECT 0.1 mg/dL (0.0-0.4); BILIRUBIN,TOTAL 0.6 mg/dL (0.2-1.3); BLOOD UREA NITROGEN 18 mg/dL (7-20); CALCIUM 7.4 mg/dL (8.4-10.2); CARBON DIOXIDE 19 mmol/L (22-30); CHLORIDE 112 mmol/L (98-107); GLUCOSE 88 mg/dL (75-110); POTASSIUM 3.8 mmol/L (3.6-5.0); TOTAL PROTEIN 5.4 g/dL (6.3-8.2)
[2020-05-22 07:58] LABS: PLATELET COUNT 87 10^3/uL (150-450)
[2020-05-22 08:04] LABS: ANION GAP 6 (5-19)
[2020-05-22] MEDS ORDERED: DIGOXIN 0.25 MG TABLET PO SCH (10:00)
[2020-05-22] MEDS: ZINC SULFATE 220 MG CAPSULE PO SCH (10:29)
[2020-05-22] MEDS: TAMSULOSIN HCL 0.4 MG CAP.SR.24H PO SCH (10:30)
[2020-05-22] MEDS: LACTULOSE SYRUP 20 GM/30 ML UDCUP PO SCH ×2 (10:30→18:05)
[2020-05-22] MEDS: MULTIVITAMIN TABLET PO SCH (10:30)
[2020-05-22] MEDS: FERROUS SULFATE 325 MG TABLET PO SCH ×2 (10:30→18:05)
[2020-05-22] MEDS: THIAMINE HCL 100 MG TABLET PO SCH (10:30)
[2020-05-22] MEDS: COLLAGENASE CLOSTRIDIUM HIST. OINT 30 GM TP SCH (10:30)
[2020-05-22] MEDS: ASPIRIN 81 MG TABLET, ENT COATED PO SCH (10:30)
[2020-05-22] MEDS: ASCORBIC ACID 500 MG TABLET PO SCH (10:30)
[2020-05-22] MEDS: SERTRALINE HCL 50 MG TABLET PO SCH (10:30)
[2020-05-22] MEDS: PANTOPRAZOLE SODIUM 40 MG TABLET.DR PO SCH ×2 (10:30→18:05)
[2020-05-22] MEDS: FOLIC ACID 1 MG TABLET PO SCH (10:30)
[2020-05-22] MEDS ORDERED: FUROSEMIDE INJ/PF 20 MG/2 ML SDV IV ONE (13:02)
--- NOTE | 2020-05-22 13:23 | PDOC PROGRESS REPORT ---
Subjective Progress Note for:: 05/22/20 Subjective:: Patient extremely encephalopathic Reason For Visit: SEVERE SEPSIS Physical Exam Vital Signs: Temp Pulse Resp BP Pulse Ox 97.3 F 49 L 15 100/62 94 05/22/20 12:08 05/22/20 12:08 05/22/20 12:08 05/22/20 12:08 05/22/20 12:08 Intake & Output 05/21/20 05/22/20 05/23/20 06:59 06:59 06:59 Intake Total 1323 1900 368 Output Total 600 500 Balance 723 1400 368 Weight 68.7 kg 69.2 kg General appearance: PRESENT: no acute distress, disheveled Head exam: PRESENT: atraumatic, normocephalic Eye exam: PRESENT: conjunctiva pink. ABSENT: scleral icterus Mouth exam: PRESENT: moist, tongue midline Neck exam: ABSENT: JVD Respiratory exam: PRESENT: crackles - Bibasilar crackles, decreased breath sounds, prolonged expiratory phas, symmetrical, unlabored. ABSENT: accessory muscle use Cardiovascular exam: PRESENT: irregular rhythm, +S1, +S2, other - A. fib Pulses: PRESENT: +1 pedal pulses bilateral - Pedal pulses 1+/- GI/Abdominal exam: PRESENT: normal bowel sounds, soft, other - Sided subcutaneous were noted which feels/appears like a shunt. ABSENT: distended, firm, guarding, rigid Rectal exam: PRESENT: deferred Gentrourinary exam: PRESENT: indwelling catheter Extremities exam: ABSENT: calf tenderness, pedal edema Neurological exam: PRESENT: awake, other - Encephalopathic Psychiatric exam: PRESENT: agitated Skin exam: PRESENT: dry, normal color, warm, other - Right knee with well healing scabbed area. No erythema or exudate. Right heel with pressure injury. Eschar noted. No erythema or exudate. Results Laboratory Results: 05/22/20 06:55 05/22/20 06:55 05/22/20 05/22/20 06:55 06:55 WBC 5.9 RBC 3.14 L Hgb 9.8 L Hct 29.8 L MCV 95 MCH 31.4 MCHC 33.1 RDW 19.7 H Plt Count 87 L Seg Neutrophils % 82.0 H Sodium 136.5 L Potassium 3.8 Chloride 112 H Carbon Dioxide 19 L Anion Gap 6 BUN 18 Creatinine 0.78 Est GFR ( Amer) > 60 Glucose 88 Calcium 7.4 L Total Bilirubin 0.6 AST 69 H Alkaline Phosphatase 214 H Total Protein 5.4 L Albumin 1.9 L 05/20/20 05:54 Catheterized Urine Urine Culture - Final Enterococcus Raffinosus 05/20/20 05/22/20 05:36 06:55 NT-Pro-B Natriuret Pep 3350 H 5740 H Impressions: Chest X-Ray 05/19/20 14:24 IMPRESSION: Improved radiographic appearance of the chest demonstrating persistent versus recurrent mixed interstitial and airspace opacities. Differential considerations include early CHF exacerbation, atypical infection, interstitial lung disease. Knee X-Ray 05/19/20 14:28 IMPRESSION: No evidence of acute osseous injury. Background of mild tricompartmental degenerative changes. Assessment and Plan - Diagnosis (1) Severe sepsis Is this a current diagnosis for this admission?: Yes Plan: Improved Patient afebrile Blood cultures 05/19/2020: NG at 48 hours Urine culture: >100,000 col/ml Enterococcus Raffinosus Sensitivities reviewed Continue vancomycin per pharmacy protocol (2) Bacteriuria with pyuria Is this a current diagnosis for this admission?: Yes Plan: Antibiotics as noted above (3) Encephalopathy Is this a current diagnosis for this admission?: Yes Plan: Patient's baseline mental status is unknown Patient likely has acute metabolic encephalopathy 2/2 infection and underlying liver disease Check ammonia level (4) KIRSTIE (acute kidney injury) Is this a current diagnosis for this admission?: Yes Plan: Renal function now WNL Monitor (5) Anemia Is this a current diagnosis for this admission?: Yes Plan: Anemia is chronic H/H remained stable after initial drop which represents a delusional component Continue FeSO4 325 mg p.o. twice daily Monitor (6) Thrombocytopenia Is this a current diagnosis for this admission?: Yes Plan: Related to chronic liver disease Patient has scattered ecchymosis over UEs, no overt sign of active hemorrhage VTE chemoprophylaxis stopped 2/2 count less than 100, slowly trending up Monitor (7) Dilated cardiomyopathy Is this a current diagnosis for this admission?: Yes Plan: IVS rate decreased to 50 cc/h, patient has had hypoglycemia and continues to need some dextrose We will need to continue to monitor volume status closely (8) Chronic systolic heart failure Is this a current diagnosis for this admission?: Yes Plan: Patient's chest x-ray is concerning for early CHF however initially he needed volume resuscitation 2/2 sepsis According to patient's daily weight is down 5.6 kg this admission and up 2.5 kg over past 24 hours 24 hour I/O + 1440 Give albumin 12.5 g IV x1 followed by furosemide 20 mg IV 30 minutes later, will need to monitor BP as it is borderline Patient has had bradycardia, stop digoxin (9) Alcoholic liver disease Is this a current diagnosis for this admission?: Yes Plan: Continue lactulose 20 g p.o. twice daily Check ammonia level and PT/INR Continue supportive care (10) Hypoglycemia Is this a current diagnosis for this admission?: Yes Plan: Likely multifactorial (poor p.o. intake/liver disease) Add FS BS 6 hours Continue D5W at 50 cc/h (11) PVD (peripheral vascular disease) Is this a current diagnosis for this admission?: Yes Plan: Continue atorvastatin 40 mg p.o. daily (12) BPH (benign prostatic hyperplasia) Is this a current diagnosis for this admission?: Yes Plan: Patient had urinary retention necessitating straight cath on 2 occasions, Johnson placed - keep for now for accurate I's/O. Will attempt to remove as soon as able 2/2 UTI Continue tamsulosin 0.4 mg p.o. daily - Plan Summary Summary: Patient is admitted as full code until we are able to determine if he has directive mandates otherwise - Time Time Spent with patient: 25-34 minutes Medications reviewed and adjusted accordingly: Yes Anticipated Discharge Disposition[facility] Anticipated Discharge Timeframe: TBD
--- NOTE | 2020-05-22 13:26 | Progress Note ---
Provider Note Provider Note: Atrial fibrillation left half problem list on 05/22/2020. Patient in atrial fibrillation however given his liver disease and thrombocytopenia is not currently an anticoagulation candidate. Continue to monitor and reassess on a daily basis.
[2020-05-22 14:30] LABS: INTERNATIONAL RATION (INR) 1.26
[2020-05-22] MEDS ORDERED: ALBUMIN HUMAN 12.5 GM/50 ML RTUINJ IV ONE (14:30)
[2020-05-22] MEDS: ATORVASTATIN CALCIUM 40 MG TABLET PO SCH (23:14)
[2020-05-23] MEDS: VANCOMYCIN HCL 750 MG in DEXTROSE 5%-WATER 250 ML IV SCH (05:39)
[2020-05-23 06:36] LABS: HEMATOCRIT 29.1 % (37.9-51.0); HEMOGLOBIN 9.7 g/dL (13.5-17.0); MEAN CORPUSCULAR HEMOGLOBIN 31.4 pg (27.0-33.4); MEAN CORPUSCULAR HGB CONC 33.3 g/dL (32.0-36.0); MEAN CORPUSCULAR VOLUME 94 fl (80-97); RED BLOOD COUNT 3.09 10^6/uL (4.35-5.55); RED CELL DISTRIBUTION WIDTH 19.8 % (11.5-14.0); WHITE BLOOD COUNT 5.6 10^3/uL (4.0-10.5)
[2020-05-23 06:48] LABS: ALKALINE PHOSPHATASE 206 U/L (38-126); ANION GAP 7 (5-19); ASPARTATE AMINO TRANSFERASE 68 U/L (17-59); BILIRUBIN,DIRECT 0.4 mg/dL (0.0-0.4); BILIRUBIN,TOTAL 0.9 mg/dL (0.2-1.3); BLOOD UREA NITROGEN 17 mg/dL (7-20); CALCIUM 7.4 mg/dL (8.4-10.2); CARBON DIOXIDE 20 mmol/L (22-30); CHLORIDE 105 mmol/L (98-107); GLUCOSE 83 mg/dL (75-110); POTASSIUM 3.6 mmol/L (3.6-5.0); TOTAL PROTEIN 5.6 g/dL (6.3-8.2)
[2020-05-23 06:53] LABS: VANCOMYCIN,TROUGH 26.3 ug/mL (5.0-20.0)
[2020-05-23 07:14] LABS: PLATELET COUNT 87 10^3/uL (150-450)
[2020-05-23] MEDS ORDERED: FUROSEMIDE INJ/PF 20 MG/2 ML SDV IV ONE ×3 (08:42→20:30)
--- NOTE | 2020-05-23 08:53 | PDOC PROGRESS REPORT ---
Subjective Progress Note for:: 05/23/20 Subjective:: Patient with increased delirium. Reason For Visit: SEVERE SEPSIS Physical Exam Vital Signs: Temp Pulse Resp BP Pulse Ox 97.3 F 78 16 106/57 L 94 05/23/20 03:36 05/23/20 06:48 05/23/20 03:36 05/23/20 03:36 05/23/20 03:36 Intake & Output 05/22/20 05/23/20 05/24/20 06:59 06:59 06:59 Intake Total 1900 1768 250 Output Total 500 1100 Balance 1400 668 250 Weight 69.2 kg 72.6 kg General appearance: PRESENT: no acute distress, disheveled, well-developed Head exam: PRESENT: atraumatic, normocephalic Eye exam: PRESENT: conjunctiva pink. ABSENT: scleral icterus Mouth exam: PRESENT: moist Neck exam: ABSENT: JVD Respiratory exam: PRESENT: decreased breath sounds - Entry diminished at bases bilaterally, symmetrical, unlabored. ABSENT: accessory muscle use Pulses: PRESENT: normal carotid pulses, other - Pedal pulses 1 +/- amy Vascular exam: PRESENT: normal capillary refill GI/Abdominal exam: PRESENT: hypoactive bowel sounds, soft. ABSENT: distended, firm, guarding, rigid Rectal exam: PRESENT: deferred Gentrourinary exam: PRESENT: indwelling catheter Extremities exam: ABSENT: calf tenderness, pedal edema Neurological exam: PRESENT: alert Psychiatric exam: PRESENT: agitated, other - Delirious Focused psych exam: PRESENT: restlessness Skin exam: PRESENT: dry, warm, other - Multiple areas of ecchymosis scattered over UEs appear to be worse in past 24 hours. Right knee with well healing scabbed area, no erythema or exudate. Right heel with pressure injury, eschar noted - no edema or exudate. According to patient's daughter he has had some sort of revascularization of his lower extremities (likely axillofemoral bypass) . He has a visible graft under the skin on his right side Results Laboratory Results: 05/23/20 05:47 05/23/20 05:47 05/22/20 05/23/20 05/23/20 13:40 05:47 05:47 WBC 5.6 RBC 3.09 L Hgb 9.7 L Hct 29.1 L MCV 94 MCH 31.4 MCHC 33.3 RDW 19.8 H Plt Count 87 L Sodium 132.1 L Potassium 3.6 Chloride 105 Carbon Dioxide 20 L Anion Gap 7 BUN 17 Creatinine 0.81 Est GFR ( Amer) > 60 Glucose 83 Calcium 7.4 L Total Bilirubin 0.9 AST 68 H Alkaline Phosphatase 206 H Ammonia < 8.7 L Total Protein 5.6 L Albumin 2.0 L 05/20/20 05:54 Catheterized Urine Urine Culture - Final Enterococcus Raffinosus 05/20/20 05/22/20 05/23/20 05:36 06:55 05:47 NT-Pro-B Natriuret Pep 3350 H 5740 H 5400 H Impressions: Chest X-Ray 05/19/20 14:24 IMPRESSION: Improved radiographic appearance of the chest demonstrating persistent versus recurrent mixed interstitial and airspace opacities. Differential considerations include early CHF exacerbation, atypical infection, interstitial lung disease. Knee X-Ray 05/19/20 14:28 IMPRESSION: No evidence of acute osseous injury. Background of mild tricompartmental degenerative changes. Assessment and Plan - Diagnosis (1) Severe sepsis Is this a current diagnosis for this admission?: Yes Plan: Patient afebrile, temp and 97.3-97.9 Blood cultures 05/19/2020: NG at 72 hours Urine culture: >100,000 col/ml Enterococcus Raffinosus Sensitivities reviewed Continue vancomycin per pharmacy protocol (2) Bacteriuria with pyuria Is this a current diagnosis for this admission?: Yes Plan: Patient required intermittent catheterization 2/2 urinary retention and Johnson catheter was ultimately placed Will attempt to remove Johnson catheter today Antibiotics as noted above (3) Encephalopathy Is this a current diagnosis for this admission?: Yes Plan: Spoke with patient's daughter (Rossy Lynch at [phone]), according to her patient was fairly functional until several months ago when he began to have "strokes" and over the past several weeks/months his condition/functionality has deteriorated. I did ask her about CODE STATUS and she stated that as recently as the past month he stated that he wanted to be a "full code" Patient likely has acute metabolic encephalopathy 2/2 infection and underlying liver disease Level 8.7 on 05/22/2020 (4) Delirium Is this a current diagnosis for this admission?: Yes Plan: Patient is developing hospital delirium Restraints prn for patient safety Ongoing supportive care (5) KIRSTIE (acute kidney injury) Is this a current diagnosis for this admission?: Yes Plan: Renal function remains WNL Monitor (6) Anemia Is this a current diagnosis for this admission?: Yes Plan: Anemia is chronic H/H remained stable after initial drop which represents a delusional component Continue FeSO4 325 mg p.o. twice daily Monitor (7) Thrombocytopenia Is this a current diagnosis for this admission?: Yes Plan: Related to chronic liver disease Patient has scattered ecchymosis over UEs which appear to be getting worse VTE chemoprophylaxis stopped 2/2 count less than 100, slowly trending up - stable past 24 hours Monitor (8) Dilated cardiomyopathy Is this a current diagnosis for this admission?: Yes Plan: IVF rate decreased to 50 cc/h, patient has had hypoglycemia and continues to need some dextrose - blood sugar improved since adding IVF with dextrose We will need to continue to monitor volume status closely (9) Chronic systolic heart failure Is this a current diagnosis for this admission?: Yes Plan: Patient's initial CXR is concerning for early CHF however initially he needed volume resuscitation 2/2 sepsis BNP 5400 Repeat CXR today According to patient's daily weight is down 2.2 kg this admission and up 3.4 kg over past 24 hours 24 hour I/O + 668 Repeat albumin 12.5 g IV x1 followed by furosemide 20 mg IV 30 minutes later, he will likely not tolerate more aggressive diuresis Patient less bradycardic today however, will leave him off digoxin (10) Alcoholic liver disease Is this a current diagnosis for this admission?: Yes Plan: Continue lactulose 20 g p.o. twice daily Continue supportive care (11) Hypoglycemia Is this a current diagnosis for this admission?: Yes Plan: Likely multifactorial (poor p.o. intake/liver disease) According to nursing staff patient is taking nothing p.o. Proved with the addition of dextrose and IVF Continue FS BS 6 hours (12) PVD (peripheral vascular disease) Is this a current diagnosis for this admission?: Yes Plan: S/P LLE revascularization, according to daughter - (likely axillofemoral bypass) Continue atorvastatin 40 mg p.o. daily (13) BPH (benign prostatic hyperplasia) Is this a current diagnosis for this admission?: Yes Plan: Patient had urinary retention necessitating straight cath on 2 occasions, Johnson placed - attempt level today 2/2 UTI Continue tamsulosin 0.4 mg p.o. daily - Plan Summary Summary: Spoke with patient's daughter, Ailyn Lynch who stated that patient expresses wishes to be a full code as recently as the last month. I informed her of her father's current condition and informed her that given his multiple comorbidities he is at high risk for deterioration. In spite of this she wishes to keep his CODE STATUS as full code - Time Time Spent with patient: 15-24 minutes Medications reviewed and adjusted accordingly: Yes Anticipated Discharge Disposition: Intermediate Facility Anticipated Discharge Timeframe: TBD
--- NOTE | 2020-05-23 09:00 | ADVANCED CARE ---
Attendance: Via telephone daughter Ailyn Lynch and Gene Cooper APRN, [facility] Resuscitation Status: Full Code Discussion: I had a lengthy discussion with patient's daughter Ailyn Lynch regarding her patient's current condition as well as his overall state of health. We discussed that given the patient's multiple comorbid conditions that he is at significant risk for deterioration. We discussed treatment options and she stated that her father had expressed his desire in the previous month to remain a full code. We did discuss CPR, endotracheal intubation, dialysis, ICU admission, and any other life-sustaining/life-prolonging measures and she states that at this time she wishes that he remain full code and that all of the above be initiated if necessary. Care Planning Goals: Daughters goal based on what she believes her father's wishes would be would be to return to his prior long-term care facility Document(s) Completed: None Time Spent: 20 minutes
[2020-05-23] MEDS: FERROUS SULFATE 325 MG TABLET PO SCH ×2 (09:34→17:54)
[2020-05-23] MEDS: TAMSULOSIN HCL 0.4 MG CAP.SR.24H PO SCH (09:34)
[2020-05-23] MEDS: MULTIVITAMIN TABLET PO SCH (09:34)
[2020-05-23] MEDS: FOLIC ACID 1 MG TABLET PO SCH (09:34)
[2020-05-23] MEDS: ASPIRIN 81 MG TABLET, ENT COATED PO SCH (09:34)
[2020-05-23] MEDS: LACTULOSE SYRUP 20 GM/30 ML UDCUP PO SCH ×2 (09:34→17:53)
[2020-05-23] MEDS: PANTOPRAZOLE SODIUM 40 MG TABLET.DR PO SCH ×2 (09:34→17:54)
[2020-05-23] MEDS: ZINC SULFATE 220 MG CAPSULE PO SCH (09:35)
[2020-05-23] MEDS: THIAMINE HCL 100 MG TABLET PO SCH (09:35)
[2020-05-23] MEDS: ASCORBIC ACID 500 MG TABLET PO SCH (09:35)
[2020-05-23] MEDS: SERTRALINE HCL 50 MG TABLET PO SCH (09:35)
[2020-05-23] MEDS ORDERED: ALBUMIN HUMAN 12.5 GM/50 ML RTUINJ IV ONE ×3 (10:00→21:20)
[2020-05-23] MEDS: COLLAGENASE CLOSTRIDIUM HIST. OINT 30 GM TP SCH (10:43)
--- NOTE | 2020-05-23 10:48 | RADIOLOGY REPORT (SQ) ---
EXAM DESCRIPTION: CHEST SINGLE VIEW IMAGES COMPLETED DATE/TIME: 05/23/2020 10:07 am REASON FOR STUDY: CHF COMPARISON: 05/19/2020. FINDINGS: Upright AP views of the chest, 2 images obtained. Cardiomegaly, as before. Worsening lung status, likely worsening CHF. Progressive interstitial opacities with more confluent patchy airspace disease in the left lower lobe when compared to prior. Suspect a small right pleural effusion. No pneumothorax. TECHNICAL DOCUMENTATION: JOB ID: [id number] Reading location - IP/workstation name: [email or web address]
[2020-05-23 20:08] LABS: ANION GAP 8 (5-19); BLOOD UREA NITROGEN 17 mg/dL (7-20); CALCIUM 7.4 mg/dL (8.4-10.2); CARBON DIOXIDE 20 mmol/L (22-30); CHLORIDE 103 mmol/L (98-107); GLUCOSE 92 mg/dL (75-110); POTASSIUM 3.5 mmol/L (3.6-5.0)
[2020-05-23] MEDS: DEXTROSE 5%-WATER 1000 ML 1,000 ML IV PRN (21:19)
[2020-05-23] MEDS: ATORVASTATIN CALCIUM 40 MG TABLET PO SCH (21:20)
[2020-05-23] MEDS: POTASSI CL 20 MEQ/50 ML RIDER 20 MEQ/50 ML RTUPB IV SCH (23:21)
[2020-05-24] MEDS: POTASSI CL 20 MEQ/50 ML RIDER 20 MEQ/50 ML RTUPB IV SCH (01:04)
[2020-05-24] MEDS ORDERED: FUROSEMIDE INJ/PF 20 MG/2 ML SDV ONE (03:42)
[2020-05-24 06:23] LABS: HEMATOCRIT 29.1 % (37.9-51.0); HEMOGLOBIN 9.7 g/dL (13.5-17.0); MEAN CORPUSCULAR HEMOGLOBIN 31.2 pg (27.0-33.4); MEAN CORPUSCULAR HGB CONC 33.4 g/dL (32.0-36.0); MEAN CORPUSCULAR VOLUME 94 fl (80-97); RED BLOOD COUNT 3.11 10^6/uL (4.35-5.55); RED CELL DISTRIBUTION WIDTH 19.5 % (11.5-14.0); WHITE BLOOD COUNT 8.7 10^3/uL (4.0-10.5)
--- NOTE | 2020-05-24 06:28 | PDOC PROGRESS REPORT ---
Subjective Progress Note for:: 05/24/20 Subjective:: Patient remains extremely delirious Reason For Visit: SEVERE SEPSIS Physical Exam Vital Signs: Temp Pulse Resp BP Pulse Ox 97.1 F 61 20 99/63 L 91 L 05/24/20 03:05 05/24/20 03:05 05/24/20 03:05 05/24/20 03:05 05/24/20 03:05 Intake & Output 05/22/20 05/23/20 05/24/20 06:59 06:59 06:59 Intake Total 1900 1768 1351 Output Total 500 1100 650 Balance 1400 668 701 Weight 69.2 kg 72.6 kg General appearance: PRESENT: no acute distress, disheveled, thin Head exam: PRESENT: atraumatic, normocephalic Eye exam: PRESENT: conjunctiva pink. ABSENT: scleral icterus Mouth exam: PRESENT: moist, tongue midline Neck exam: ABSENT: JVD Respiratory exam: PRESENT: crackles - Minimal bibasilar crackles, decreased breath sounds - Air entry diminished at bases bilaterally, symmetrical, unlabored. ABSENT: accessory muscle use Cardiovascular exam: PRESENT: irregular rhythm, +S1, +S2, other - Afib Pulses: PRESENT: other - Pedal pulses 1+/- Vascular exam: PRESENT: normal capillary refill GI/Abdominal exam: PRESENT: hypoactive bowel sounds, soft. ABSENT: distended, firm, rigid Rectal exam: PRESENT: deferred Extremities exam: ABSENT: pedal edema Neurological exam: PRESENT: awake, other - STUBBS spontaneously but does not follow commands Psychiatric exam: PRESENT: agitated, other - Delirious Skin exam: PRESENT: dry, normal color, warm Results Laboratory Results: 05/23/20 05:47 05/23/20 19:26 05/23/20 05/23/20 05/23/20 05:47 05:47 19:26 WBC 5.6 RBC 3.09 L Hgb 9.7 L Hct 29.1 L MCV 94 MCH 31.4 MCHC 33.3 RDW 19.8 H Plt Count 87 L Sodium 132.1 L 131.3 L Potassium 3.6 3.5 L Chloride 105 103 Carbon Dioxide 20 L 20 L Anion Gap 7 8 BUN 17 17 Creatinine 0.81 0.90 Est GFR ( Amer) > 60 > 60 Glucose 83 92 Calcium 7.4 L 7.4 L Magnesium 1.9 Total Bilirubin 0.9 AST 68 H Alkaline Phosphatase 206 H Total Protein 5.6 L Albumin 2.0 L 05/20/20 05/22/20 05/23/20 05:36 06:55 05:47 NT-Pro-B Natriuret Pep 3350 H 5740 H 5400 H Impressions: Knee X-Ray 05/19/20 14:28 IMPRESSION: No evidence of acute osseous injury. Background of mild tricompartmental degenerative changes. Assessment and Plan - Diagnosis (1) Severe sepsis Is this a current diagnosis for this admission?: Yes Plan: Patient afebrile, temp and 97.1-97.9 Blood cultures 05/19/2020: NG at 4 days Urine culture: >100,000 col/ml Enterococcus Raffinosus Sensitivities reviewed Continue vancomycin per pharmacy protocol (2) Bacteriuria with pyuria Is this a current diagnosis for this admission?: Yes Plan: Patient required intermittent catheterization 2/2 urinary retention and Johnson catheter was ultimately placed Johnson catheter removed on 05/23/2020 but patient has required intermittent straight cathing, will leave Johnson out at this point given patient's ongoing UTI - nursing staff reports that his urine remains extremely turbid Antibiotics as noted above (3) Encephalopathy Is this a current diagnosis for this admission?: Yes Plan: Spoke with patient's daughter (Rossy Lynch at [phone]), according to her patient was fairly functional until several months ago when he began to have "strokes" and over the past several weeks/months his condition/functionality has deteriorated. I did ask her about CODE STATUS and she stated that as recently as the past month he stated that he wanted to be a "full code" Patient likely has acute metabolic encephalopathy 2/2 infection and underlying liver disease Level 8.7 on 05/22/2020 (4) Delirium Is this a current diagnosis for this admission?: Yes Plan: Patient has hospital delirium Restraints prn for patient safety Ongoing supportive care (5) KIRSTIE (acute kidney injury) Is this a current diagnosis for this admission?: Yes Plan: Renal function and to WNL however a.m. labs are pending at this time Monitor (6) Anemia Is this a current diagnosis for this admission?: Yes Plan: Anemia is chronic H/H remained stable after initial drop which represents a delusional component my a.m. labs pending at this time Continue FeSO4 325 mg p.o. twice daily Monitor (7) Thrombocytopenia Is this a current diagnosis for this admission?: Yes Plan: Related to chronic liver disease Patient scattered ecchymosis is becoming worse. He now has ecchymosis scattered over UEs, torso, and LEs VTE chemoprophylaxis stopped 2/2 count less than 100, slowly trending up Monitor (8) Dilated cardiomyopathy Is this a current diagnosis for this admission?: Yes Plan: IVF rate decreased to 50 cc/h, patient has had hypoglycemia and continues to nee d some dextrose - blood sugar improved since adding IVF with dextrose We will need to continue to monitor volume status closely (9) Chronic systolic heart failure Is this a current diagnosis for this admission?: Yes (10) Afib Is this a current diagnosis for this admission?: Yes Plan: A. fib likely chronic persistent At this time patient is not a candidate for anticoagulation (risks outweigh benefits) 2/2 underlying liver disease, thrombocytopenia, and fall risk, will contact patient's daughter again today and discuss overall condition as well as risk/benefit of chronic anticoagulation (11) Alcoholic liver disease Is this a current diagnosis for this admission?: Yes Plan: Ammonia level WNL Continue lactulose 20 g p.o. twice daily Continue supportive care (12) Hypoglycemia Is this a current diagnosis for this admission?: Yes Plan: Likely multifactorial (poor p.o. intake/liver disease) According to nursing staff patient is taking nothing p.o. Hypoglycemia improved with the addition of dextrose in IVF Continue FS BS 6 hours (13) PVD (peripheral vascular disease) Is this a current diagnosis for this admission?: Yes Plan: S/P LLE revascularization, according to daughter - (likely axillofemoral bypass) Continue atorvastatin 40 mg p.o. daily (14) BPH (benign prostatic hyperplasia) Is this a current diagnosis for this admission?: Yes Plan: Patient had urinary retention necessitating intermittent straight cath Continue tamsulosin 0.4 mg p.o. daily (15) Debility Is this a current diagnosis for this admission?: Yes Plan: Patient is extremely debilitated. I discussed the patient's overall condition with his daughter and she states that he the patient expressed his wishes to remain a full code. I will revisit this discussion with her today. (16) Severe protein-calorie malnutrition ([place]: less than 60% of standard weight) Is this a current diagnosis for this admission?: Yes Plan: Patient has not taken anything p.o. in the last 2 days Will likely need NG tube and tube feeding We will discuss this with the patient's daughter as I am concerned that given his overall condition and what is clearly chronic malnutrition he may need long- term tube feeding. The daughter will need to be aware that the next step following insertion of an NG tube will likely be insertion of permanent feeding tube - Plan Summary Summary: Spoke with patient's daughter, Ailyn Lynch who stated that patient expresses wishes to be a full code as recently as the last month. I informed her of her father's current condition and informed her that given his multiple comorbidities he is at high risk for deterioration. In spite of this she wishes to keep his CODE STATUS as full code - Time Time Spent with patient: 15-24 minutes Medications reviewed and adjusted accordingly: Yes Anticipated Discharge Disposition[facility] Anticipated Discharge Timeframe: TBD
[2020-05-24 06:52] LABS: PLATELET COUNT 83 10^3/uL (150-450)
[2020-05-24 06:54] LABS: ABSOLUTE LYMPHOCYTES# (MANUAL) 0.3 10^3/uL (0.5-4.7); ABSOLUTE MONOCYTES # (MANUAL) 0.2 10^3/uL (0.1-1.4); BAND NEUTROPHILS % (MANUAL) 4 % (3-5); BASOPHILS % (MANUAL) 0 % (0-2); EOSINOPHILS % (MANUAL) 1 % (0-6); LYMPHOCYTES % (MANUAL) 4 % (13-45); MONOCYTES % (MANUAL) 2 % (3-13); SEGMENTED NEUTROPHILS % (MAN) 89 % (42-78); TOTAL CELLS COUNTED 100
[2020-05-24 06:55] LABS: ANISOCYTOSIS 2+; PLATELET COMMENT DECREASED; POLYCHROMASIA 1+
[2020-05-24 09:28] LABS: ALBUMIN 2.2 g/dL (3.5-5.0); ALKALINE PHOSPHATASE 185 U/L (38-126); ANION GAP 5 (5-19); ASPARTATE AMINO TRANSFERASE 97 U/L (17-59); BILIRUBIN,DIRECT 0.5 mg/dL (0.0-0.4); BILIRUBIN,TOTAL 1.2 mg/dL (0.2-1.3); BLOOD UREA NITROGEN 17 mg/dL (7-20); CALCIUM 7.4 mg/dL (8.4-10.2); CARBON DIOXIDE 22 mmol/L (22-30); CHLORIDE 106 mmol/L (98-107); GLUCOSE 81 mg/dL (75-110); POTASSIUM 4.1 mmol/L (3.6-5.0); TOTAL PROTEIN 5.7 g/dL (6.3-8.2)
[2020-05-24] MEDS: FOLIC ACID 1 MG TABLET PO SCH (10:29)
[2020-05-24] MEDS: PANTOPRAZOLE SODIUM 40 MG TABLET.DR PO SCH ×2 (10:30→19:15)
[2020-05-24] MEDS: MULTIVITAMIN TABLET PO SCH (10:30)
[2020-05-24] MEDS: THIAMINE HCL 100 MG TABLET PO SCH (10:30)
[2020-05-24] MEDS: ASCORBIC ACID 500 MG TABLET PO SCH (10:30)
[2020-05-24] MEDS: FERROUS SULFATE 325 MG TABLET PO SCH ×2 (10:31→19:15)
[2020-05-24] MEDS: ASPIRIN 81 MG TABLET, ENT COATED PO SCH (10:31)
[2020-05-24] MEDS: ZINC SULFATE 220 MG CAPSULE PO SCH (10:31)
[2020-05-24] MEDS: LACTULOSE SYRUP 20 GM/30 ML UDCUP PO SCH ×2 (10:31→19:15)
[2020-05-24] MEDS: TAMSULOSIN HCL 0.4 MG CAP.SR.24H PO SCH (10:31)
[2020-05-24] MEDS: SERTRALINE HCL 50 MG TABLET PO SCH (10:31)
[2020-05-24] MEDS: COLLAGENASE CLOSTRIDIUM HIST. OINT 30 GM TP SCH (10:32)
[2020-05-24 10:42] LABS: VANCOMYCIN,TROUGH 23.5 ug/mL (5.0-20.0)
--- NOTE | 2020-05-24 20:36 | Progress Note ---
Provider Note Provider Note: I had a lengthy discussion with the patient's daughter Ailyn Lynch regarding patient's condition. We discussed the fact that he is declining and given his delirium he is no longer in a state to make or contribute to any of his healthcare decisions. We discussed his multiple comorbid conditions and the fact that treatment of one issue often times exacerbates another. We also discussed the fact that with his delirium he is no longer taking adequate p.o. intake. We discussed feedings via NGT. I discussed my concern about placement of an NGT at this time given the patient's thrombocytopenia and underlying liver disease. I also expressed that I had concerns that there was the possibility he could have esophageal varices and that placing an NGT could disrupt a varice and cause severe bleeding which could potentially lead to his . At this time she would prefer to hold off on placement of an NGT. She states that she has one sister however that sister has not been involved in their father's life for quite some time. She has reached out to that sister to discuss her father's care however her sister will not communicate with her. In discussion it seems that Ailyn may be moving in a direction of considering possible comfort care or at least a DNR status. She is not prepared to make that decision quite yet, but states that she has been thinking a lot about it and that she does not want her father to suffer. She also states that her mother with hepatic failure from cirrhosis and she is concerned that her father is moving in that same direction.
[2020-05-24] MEDS: DEXTROSE 5%-WATER 1000 ML 1,000 ML IV PRN (22:52)
[2020-05-24] MEDS: ATORVASTATIN CALCIUM 40 MG TABLET PO SCH (22:53)
[2020-05-25 06:43] LABS: HEMOGLOBIN 8.9 g/dL (13.5-17.0); MEAN CORPUSCULAR HEMOGLOBIN 31.4 pg (27.0-33.4); MEAN CORPUSCULAR HGB CONC 33.1 g/dL (32.0-36.0); MEAN CORPUSCULAR VOLUME 95 fl (80-97); RED BLOOD COUNT 2.85 10^6/uL (4.35-5.55); RED CELL DISTRIBUTION WIDTH 20.1 % (11.5-14.0); WHITE BLOOD COUNT 7.4 10^3/uL (4.0-10.5)
[2020-05-25 07:16] LABS: ALBUMIN 1.9 g/dL (3.5-5.0); ALKALINE PHOSPHATASE 152 U/L (38-126); ASPARTATE AMINO TRANSFERASE 128 U/L (17-59); BILIRUBIN,DIRECT 0.4 mg/dL (0.0-0.4); BILIRUBIN,TOTAL 1.1 mg/dL (0.2-1.3); BLOOD UREA NITROGEN 15 mg/dL (7-20); CARBON DIOXIDE 22 mmol/L (22-30); CHLORIDE 105 mmol/L (98-107); GLUCOSE 77 mg/dL (75-110); POTASSIUM 3.3 mmol/L (3.6-5.0); TOTAL PROTEIN 5.1 g/dL (6.3-8.2)
[2020-05-25 07:21] LABS: VANCOMYCIN,TROUGH 17.3 ug/mL (5.0-20.0)
[2020-05-25 07:31] LABS: PLATELET COUNT 86 10^3/uL (150-450)
[2020-05-25 07:35] LABS: ABSOLUTE LYMPHOCYTES# (MANUAL) 0.2 10^3/uL (0.5-4.7); ANION GAP 5 (5-19); BASOPHILS % (MANUAL) 0 % (0-2); EOSINOPHILS % (MANUAL) 0 % (0-6); LYMPHOCYTES % (MANUAL) 3 % (13-45); MONOCYTES % (MANUAL) 0 % (3-13); SEGMENTED NEUTROPHILS % (MAN) 97 % (42-78); TOTAL CELLS COUNTED 100
[2020-05-25 07:36] LABS: ANISOCYTOSIS 2+; CALCIUM 6.7 mg/dL (8.4-10.2); OVALOCYTES SLIGHT; PLATELET COMMENT DECREASED; TEAR DROP CELLS SLIGHT
[2020-05-25] MEDS ORDERED: NORMAL SALINE 1000 ML 500 ML IV ONE ×2 (08:12→09:30)
[2020-05-25] MEDS: FOLIC ACID 1 MG TABLET PO SCH (09:44)
[2020-05-25] MEDS: ASPIRIN 81 MG TABLET, ENT COATED PO SCH (09:44)
[2020-05-25] MEDS: FERROUS SULFATE 325 MG TABLET PO SCH ×2 (09:44→17:53)
[2020-05-25] MEDS: LACTULOSE SYRUP 20 GM/30 ML UDCUP PO SCH ×2 (09:44→17:53)
[2020-05-25] MEDS: TAMSULOSIN HCL 0.4 MG CAP.SR.24H PO SCH (09:44)
[2020-05-25] MEDS: PANTOPRAZOLE SODIUM 40 MG TABLET.DR PO SCH ×2 (09:44→17:53)
[2020-05-25] MEDS: SERTRALINE HCL 50 MG TABLET PO SCH (09:45)
[2020-05-25] MEDS: MULTIVITAMIN TABLET PO SCH (09:45)
[2020-05-25] MEDS: COLLAGENASE CLOSTRIDIUM HIST. OINT 30 GM TP SCH (09:45)
[2020-05-25] MEDS: THIAMINE HCL 100 MG TABLET PO SCH (09:45)
[2020-05-25] MEDS: ASCORBIC ACID 500 MG TABLET PO SCH (09:45)
[2020-05-25] MEDS: ZINC SULFATE 220 MG CAPSULE PO SCH (09:45)
[2020-05-25] MEDS: DEXTROSE 5%-WATER 1000 ML 1,000 ML IV PRN (09:46)
--- NOTE | 2020-05-25 16:41 | ADVANCED CARE ---
- Diagnosis (1) Afib Diagnosis Current: Yes (2) KIRSTIE (acute kidney injury) Diagnosis Current: Yes (3) Alcoholic liver disease Diagnosis Current: Yes (4) Anemia Diagnosis Current: Yes (5) Bacteriuria with pyuria Diagnosis Current: Yes (6) Chronic systolic heart failure Diagnosis Current: Yes (7) Dilated cardiomyopathy Diagnosis Current: Yes (8) Encephalopathy Diagnosis Current: Yes (9) Hypoglycemia Diagnosis Current: Yes (10) PVD (peripheral vascular disease) Diagnosis Current: Yes (11) Severe sepsis Diagnosis Current: Yes (12) Thrombocytopenia Diagnosis Current: Yes Attendance: The patient's daughter, Rossy Lynch, via phone at [phone] Resuscitation Status: Do Not Resuscitate Discussion: Discussed the patient's chronic medical conditions, current admitting diagnoses, current clinical status (including nonreassuring vital signs; SBP 60-80s), and prognosis. Patient's daughter stated that she was able to speak with the patient's sister, her aunt, yesterday and both agreed that the patient would not want heroic measures instituted should he decompensate further. She agrees to transition patient to DNR/DNI. Introduced concept of hospice; daughter states that she feels that that is the direction that they will likely go, however, asks for "a little more time to think it over." Ms. Lynch asks that we continue all other current interventions (primarily IV medications and fluids as the patient is taking nothing by mouth secondary to mentation/encephalopathy). She is advised that I was concerned about the patient's condition and his very likely deterioration over the next 24 to 48 hours; she confirms understanding, but is not yet ready to transition to hospice services. She did reiterate that the patient would not want aggressive intervention. Care Planning Goals: DNR/DNI Continue current interventions; do not escalate care as patient's condition declines (no ICU, pressor support, surgical interventions). Likely transition to hospice services in near future. Time Spent: 30 min
[2020-05-25] MEDS ORDERED: FUROSEMIDE INJ/PF 20 MG/2 ML SDV IV PRN (17:23)
--- NOTE | 2020-05-25 17:29 | PDOC PROGRESS REPORT ---
Subjective Reason For Visit: SEVERE SEPSIS Physical Exam Vital Signs: Temp Pulse Resp BP Pulse Ox 97.3 F 58 L 20 80/48 L 91 L 05/25/20 10:00 05/25/20 14:00 05/25/20 03:08 05/25/20 09:13 05/25/20 03:08 Intake & Output 05/24/20 05/25/20 05/26/20 06:59 06:59 06:59 Intake Total 1501 844 Output Total 875 880 Balance 626 -36 Weight 72.1 kg 72.2 kg General appearance: PRESENT: no acute distress, disheveled, thin, well- developed, other - Minimal subcutaneous fat; muscle wasting Head exam: PRESENT: atraumatic, normocephalic Eye exam: PRESENT: conjunctiva pink, EOMI, PERRLA. ABSENT: scleral icterus Mouth exam: PRESENT: dry mucosa, tongue midline Teeth exam: PRESENT: poor dentation Respiratory exam: PRESENT: decreased breath sounds - Throughout, symmetrical, unlabored, other - Supplemental oxygen by nasal cannula. ABSENT: rales, rhonchi, wheezes Cardiovascular exam: PRESENT: irregular rhythm, +S1, +S2. ABSENT: diastolic murmur, rubs, systolic murmur Pulses: PRESENT: +1 pedal pulses bilateral Vascular exam: PRESENT: normal capillary refill GI/Abdominal exam: PRESENT: hypoactive bowel sounds, soft. ABSENT: distended, guarding, mass, organolmegaly, rebound, tenderness Rectal exam: PRESENT: deferred Extremities exam: PRESENT: full ROM. ABSENT: calf tenderness, clubbing, pedal edema Neurological exam: PRESENT: alert, awake, CN II-XII grossly intact, other - Does not answer questions, follow directions. Noted to be reaching for things in the air. Restless.. ABSENT: motor sensory deficit Focused psych exam: PRESENT: restlessness Skin exam: PRESENT: dry, warm. ABSENT: cyanosis, rash Results Laboratory Results: 05/25/20 06:22 05/25/20 06:22 05/25/20 05/25/20 06:22 06:22 WBC 7.4 RBC 2.85 L Hgb 8.9 L Hct 27.0 L MCV 95 MCH 31.4 MCHC 33.1 RDW 20.1 H Plt Count 86 L Seg Neutrophils % Not Reportable Sodium 131.0 L Potassium 3.3 L Chloride 105 Carbon Dioxide 22 Anion Gap 5 BUN 15 Creatinine 0.78 Est GFR ( Amer) > 60 Glucose 77 Calcium 6.7 L* Total Bilirubin 1.1 AST 128 H Alkaline Phosphatase 152 H Total Protein 5.1 L Albumin 1.9 L 05/19/20 13:33 Blood Blood Culture - Final NO GROWTH IN 5 DAYS 05/19/20 13:05 Blood Blood Culture - Final NO GROWTH IN 5 DAYS 05/20/20 05/22/20 05/23/20 05:36 06:55 05:47 NT-Pro-B Natriuret Pep 3350 H 5740 H 5400 H 05/24/20 05:38 NT-Pro-B Natriuret Pep 6750 H Impressions: Knee X-Ray 05/19/20 14:28 IMPRESSION: No evidence of acute osseous injury. Background of mild tricompartmental degenerative changes. Assessment and Plan - Diagnosis (1) Alcoholic liver disease Is this a current diagnosis for this admission?: Yes Plan: Ammonia level WNL Continue lactulose 20 g p.o. twice daily. Due to patient's mentation, he is not received his lactulose x6 doses. We will check ammonia level in the morning. Previous provider discussed with daughter concern regarding placing NG tube (secondary to possible varices). Daughter has requested we not place NG tube. If ammonia level is significantly elevated, will have to began lactulose enemas. Continue to discuss with family goals of care. Please see separate ACP note from today. (2) Afib Is this a current diagnosis for this admission?: Yes Plan: A. fib likely longstanding persistent At this time patient is not a candidate for anticoagulation (risks outweigh benefits) 2/2 underlying liver disease, thrombocytopenia, and fall risk. Currently bradycardic without medications (n.p.o. status secondary to mentation). Continue monitor on telemetry. (3) KIRSTIE (acute kidney injury) Is this a current diagnosis for this admission?: Yes Plan: Resolved. Avoid nephrotoxic medications as able. Renally dosed where appropriate. Vancomycin dosed by pharmacy. Follow-up chemistries. (4) Anemia Is this a current diagnosis for this admission?: Yes Plan: Anemia is chronic H/H remained stable after initial drop which represents a delusional component Continue FeSO4 325 mg p.o. twice daily once taking p.o. Will check anemia panel with am lab work; may benefit from iron infusion. Monitor (5) Bacteriuria with pyuria Is this a current diagnosis for this admission?: Yes Plan: Urinalysis revealed UTI. Urine culture positive for enterococcus raffinosus Blood cultures negative at 5 days. Continue vancomycin; day #7. Will discontinue. (6) Chronic systolic heart failure Is this a current diagnosis for this admission?: Yes Plan: Patient's initial CXR is concerning for early CHF however initially he needed volume resuscitation 2/2 sepsis Repeat CXR slightly worse BNP 5400-> 6750 Weight down ~ 2 kg since admission Currently on IVF r/t hypotension. Not taking p.o. so will trial IV Solu-medrol. Additional IV albumin Low dose furosemide if SBP>100 to attempt to mobilize fluid. Patient less bradycardic today however, will leave him off digoxin (7) Dilated cardiomyopathy Is this a current diagnosis for this admission?: Yes Plan: Unfortunately, not taking p.o. at this time. Primary management as above. We will need to continue to monitor volume status closely (8) Encephalopathy Is this a current diagnosis for this admission?: Yes Plan: Acute metabolic encephalopathy r/t acute infection in setting of chronic alcoholic hepatits. Persistent; alert/wake but without orientation. Repeat ammonia level in AM Fall precautions. Supportive care. (9) Hypoglycemia Is this a current diagnosis for this admission?: Yes Plan: Improved; no hypoglycemic events Likely multifactorial (poor p.o. intake/liver disease) Hypoglycemia improved with the addition of dextrose in IVF Continue FS BS 6 hours Not taking p.o r/t mental status Discussed with daughter today; does not want alternate means of nutrition. (10) PVD (peripheral vascular disease) Is this a current diagnosis for this admission?: Yes Plan: S/P LLE revascularization, according to daughter - (likely axillofemoral bypass) Continue atorvastatin 40 mg p.o. daily (11) Severe sepsis Is this a current diagnosis for this admission?: Yes Plan: Patient afebrile, WBCs nml. He is hypotensive, hoever, this is likel r/t liver disease. Blood cultures 05/19/2020: NGTD Urine culture: >100,000 col/ml Enterococcus Raffinosus Completed full course of Vancomycin (12) Thrombocytopenia Is this a current diagnosis for this admission?: Yes Plan: Related to chronic liver disease Patient scattered ecchymosis is becoming worse. He now has ecchymosis scattered over UEs, torso, and LEs VTE chemoprophylaxis stopped 2/2 count less than 100, slowly trending up Monitor - Time Time Spent with patient: 35 or more minutes Medications reviewed and adjusted accordingly: Yes Anticipated Discharge Disposition: [facility] - w/ hospice services Anticipated Discharge Timeframe: UTD
[2020-05-25] MEDS: VANCOMYCIN HCL 750 MG in DEXTROSE 5%-WATER 250 ML IV SCH (17:53)
[2020-05-25] MEDS: METHYLPREDNISOLONE INJ 40 MG/1 ML SDV IV SCH ×2 (18:17→23:55)
[2020-05-25] MEDS: POTASSI CL 20 MEQ/50 ML RIDER 20 MEQ/50 ML RTUPB IV SCH ×2 (18:18→20:45)
[2020-05-25] MEDS: ALBUMIN HUMAN 12.5 GM/50 ML RTUINJ IV SCH ×2 (20:46→23:55)
[2020-05-25] MEDS: ATORVASTATIN CALCIUM 40 MG TABLET PO SCH (23:40)
[2020-05-26] MEDS: ALBUMIN HUMAN 12.5 GM/50 ML RTUINJ IV SCH ×2 (00:49→02:00)
[2020-05-26 05:45] LABS: ABSOLUTE RETICS # 0.044 10^6/uL (0.028-0.122); HEMATOCRIT 26.2 % (37.9-51.0); HEMOGLOBIN 8.9 g/dL (13.5-17.0); MEAN CORPUSCULAR HEMOGLOBIN 31.6 pg (27.0-33.4); MEAN CORPUSCULAR VOLUME 93 fl (80-97); RED BLOOD COUNT 2.81 10^6/uL (4.35-5.55); RED CELL DISTRIBUTION WIDTH 19.9 % (11.5-14.0); RETICULOCYTE COUNT (AUTO) 1.58 % (0.66-2.85); WHITE BLOOD COUNT 7.8 10^3/uL (4.0-10.5)
[2020-05-26 05:51] LABS: ALBUMIN 2.3 g/dL (3.5-5.0); ALKALINE PHOSPHATASE 150 U/L (38-126); ANION GAP 8 (5-19); ASPARTATE AMINO TRANSFERASE 131 U/L (17-59); BILIRUBIN,DIRECT 0.5 mg/dL (0.0-0.4); BILIRUBIN,TOTAL 1.2 mg/dL (0.2-1.3); BLOOD UREA NITROGEN 13 mg/dL (7-20); CARBON DIOXIDE 17 mmol/L (22-30); CHLORIDE 106 mmol/L (98-107); GLUCOSE 155 mg/dL (75-110); IRON(TIBC) 21.4 ug/dL (49-181); TOTAL PROTEIN 5.4 g/dL (6.3-8.2)
[2020-05-26] MEDS: METHYLPREDNISOLONE INJ 40 MG/1 ML SDV IV SCH ×3 (06:04→22:34)
[2020-05-26 06:12] LABS: CALCIUM 6.8 mg/dL (8.4-10.2)
[2020-05-26 06:26] LABS: PLATELET COUNT 86 10^3/uL (150-450)
[2020-05-26 06:28] LABS: ABSOLUTE LYMPHOCYTES# (MANUAL) 0.2 10^3/uL (0.5-4.7); BASOPHILS % (MANUAL) 0 % (0-2); EOSINOPHILS % (MANUAL) 0 % (0-6); LYMPHOCYTES % (MANUAL) 3 % (13-45); MONOCYTES % (MANUAL) 0 % (3-13); SEGMENTED NEUTROPHILS % (MAN) 97 % (42-78); TOTAL CELLS COUNTED 100
[2020-05-26 06:30] LABS: ANISOCYTOSIS 2+; PLATELET COMMENT DECREASED; POIKILOCYTOSIS 1+; POLYCHROMASIA SLIGHT; TEAR DROP CELLS SLIGHT
[2020-05-26 06:58] LABS: FOLATE > 20.00 ng/mL (>2.76)
[2020-05-26] MEDS: ASPIRIN 81 MG TABLET, ENT COATED PO SCH (15:36)
[2020-05-26] MEDS: FERROUS SULFATE 325 MG TABLET PO SCH ×2 (15:36→17:18)
[2020-05-26] MEDS: LACTULOSE SYRUP 20 GM/30 ML UDCUP PO SCH ×2 (15:36→19:17)
[2020-05-26] MEDS: TAMSULOSIN HCL 0.4 MG CAP.SR.24H PO SCH (15:37)
[2020-05-26] MEDS: FOLIC ACID 1 MG TABLET PO SCH (15:37)
[2020-05-26] MEDS: THIAMINE HCL 100 MG TABLET PO SCH (15:38)
[2020-05-26] MEDS: PANTOPRAZOLE SODIUM 40 MG TABLET.DR PO SCH ×2 (15:38→17:19)
[2020-05-26] MEDS: MULTIVITAMIN TABLET PO SCH (15:38)
[2020-05-26] MEDS: ASCORBIC ACID 500 MG TABLET PO SCH (15:39)
[2020-05-26] MEDS: SERTRALINE HCL 50 MG TABLET PO SCH (15:39)
[2020-05-26] MEDS: ZINC SULFATE 220 MG CAPSULE PO SCH (15:39)
[2020-05-26] MEDS: COLLAGENASE CLOSTRIDIUM HIST. OINT 30 GM TP SCH (17:17)
[2020-05-26] MEDS: VANCOMYCIN HCL 750 MG in DEXTROSE 5%-WATER 250 ML IV SCH (17:20)
--- NOTE | 2020-05-26 17:22 | PDOC PROGRESS REPORT ---
Subjective Progress Note for:: 05/26/20 Subjective:: Patient was seen on morning rounds. He is found resting in bed on supplemental oxygen by nasal cannula at 3 L/min. He is fatigued but arousable; wakes with a startle and begins picking at his sheet and reaching for things in the air. He mumbles in response to questions but does not follow directions. No coherent speech. He does appear to be comfortable and is not noted to be in any acute distress, however, vital signs show downward trend in heart rate, blood pressure, and SPO2. Discussed plan of care with nursing. Reason For Visit: SEVERE SEPSIS Physical Exam Vital Signs: Temp Pulse Resp BP Pulse Ox 97.3 F 42 L 19 146/91 H 84 L 05/26/20 10:00 05/26/20 14:00 05/26/20 03:01 05/26/20 03:01 05/26/20 03:01 Intake & Output 05/25/20 05/26/20 05/27/20 06:59 06:59 06:59 Intake Total 844 2785 Output Total 880 150 Balance -36 2635 Weight 72.2 kg 73.4 kg General appearance: PRESENT: no acute distress, disheveled, thin, well-developed Head exam: PRESENT: atraumatic, normocephalic Eye exam: PRESENT: conjunctiva pale, EOMI, PERRLA. ABSENT: scleral icterus Mouth exam: PRESENT: dry mucosa, tongue midline Respiratory exam: PRESENT: crackles, decreased breath sounds, rhonchi, symmetrical, unlabored, other - Supplemental oxygen by nasal cannula. ABSENT: rales, wheezes Cardiovascular exam: PRESENT: bradycardia, irregular rhythm, +S1, +S2 Pulses: PRESENT: +1 pedal pulses bilateral GI/Abdominal exam: PRESENT: ascites, hypoactive bowel sounds, soft. ABSENT: distended, guarding, mass, organolmegaly, rebound, tenderness Extremities exam: PRESENT: full ROM - Moves arms spontaneously Neurological exam: PRESENT: other - Fatigued, arousable. Does not answer questions or follow directions. Noted to be reaching for things in the air. Restless Focused psych exam: PRESENT: restlessness Skin exam: PRESENT: dry, pallor, petechiae - Scattered ecchymosis, skin tears - Numerous, warm. ABSENT: cyanosis, rash Results Laboratory Results: 05/26/20 05:15 05/26/20 05:15 05/26/20 05/26/20 05/26/20 05:15 05:15 05:15 WBC 7.8 RBC 2.81 L Hgb 8.9 L Hct 26.2 L MCV 93 MCH 31.6 MCHC 34.0 RDW 19.9 H Plt Count 86 L Seg Neutrophils % Not Reportable Retic Count (auto) 1.58 Sodium 131.2 L Potassium 4.0 Chloride 106 Carbon Dioxide 17 L Anion Gap 8 BUN 13 Creatinine 0.73 Est GFR ( Amer) > 60 Glucose 155 H Calcium 6.8 L* Iron 21.4 L TIBC 164 L % Saturation 13 Ferritin 122.00 Total Bilirubin 1.2 AST 131 H Alkaline Phosphatase 150 H Ammonia < 8.7 L Total Protein 5.4 L Albumin 2.3 L Vitamin B12 515.0 Folate > 20.00 05/20/20 05/22/20 05/23/20 05:36 06:55 05:47 NT-Pro-B Natriuret Pep 3350 H 5740 H 5400 H 05/24/20 05:38 NT-Pro-B Natriuret Pep 6750 H Impressions: Knee X-Ray 05/19/20 14:28 IMPRESSION: No evidence of acute osseous injury. Background of mild tricompartmental degenerative changes. Assessment and Plan - Diagnosis (1) Alcoholic liver disease Is this a current diagnosis for this admission?: Yes Plan: Ammonia level WNL Continue lactulose 20 g p.o. twice daily. Due to patient's mentation, he is not received his lactulose x6 doses. Ammonia level is acceptable. Previous provider discussed with daughter concern regarding placing NG tube (secondary to possible varices). Daughter has requested we not place NG tube. No improvement in blood pressure with IV fluids, Solu-Medrol, and albumin. Spoke with patient's daughter again by phone today. Informed her that his vital signs were worsening and I did not have confidence that we would be able to turn his condition around even with aggressive measures. I inquired as to whether or not she had had the opportunity discussed with family recommendations for tra nsition to hospice services. She states that she has not had a chance to do so yet wants us to continue our current interventions, without escalation should he decondition further. I did inform her that I felt that she needed to come to visit and as soon as possible that he did not anticipate that he had much time left. Daughter indicates that she will attempt to come visit him this evening. (2) Afib Is this a current diagnosis for this admission?: Yes Plan: A. fib likely longstanding persistent At this time patient is not a candidate for anticoagulation (risks outweigh benefits) 2/2 underlying liver disease, thrombocytopenia, and fall risk. Currently bradycardic without medications (n.p.o. status secondary to mentatio n). Continue monitor on telemetry. (3) KIRSTIE (acute kidney injury) Is this a current diagnosis for this admission?: Yes Plan: Resolved. Avoid nephrotoxic medications as able. Renally dosed where appropriate. Follow-up chemistries. (4) Anemia Is this a current diagnosis for this admission?: Yes Plan: Anemia is chronic H/H remained stable after initial drop which represents a delusional component Anemia panel reveals mild iron deficiency anemia; iron 21.4, TIBC 164, ferritin 122, B12 515. Continue FeSO4 325 mg p.o. twice daily once taking p.o. Monitor (5) Bacteriuria with pyuria Is this a current diagnosis for this admission?: Yes Plan: Urinalysis revealed UTI. Urine culture positive for enterococcus raffinosus Blood cultures negative at 5 days. Completed 7-day course of vancomycin. (6) Chronic systolic heart failure Is this a current diagnosis for this admission?: Yes Plan: Patient's initial CXR is concerning for early CHF however initially he needed volume resuscitation 2/2 sepsis Repeat CXR slightly worse BNP 5400-> 6750 Weight down ~ 2 kg since admission No improvement in blood pressure with IV fluids, Solu-Medrol, or albumin. Low dose furosemide if SBP>100 to attempt to mobilize fluid. Patient less bradycardic today however, will leave him off digoxin (7) Dilated cardiomyopathy Is this a current diagnosis for this admission?: Yes Plan: Unfortunately, not taking p.o. at this time. Primary management as above. We will need to continue to monitor volume status closely (8) Encephalopathy Is this a current diagnosis for this admission?: Yes Plan: Acute metabolic encephalopathy r/t acute infection in setting of chronic alcoholic hepatits. Ammonia level is appropriate Persistent; alert/wake but without orientation. Fall precautions. Supportive care. (9) Hypoglycemia Is this a current diagnosis for this admission?: Yes Plan: Improved; no hypoglycemic events Likely multifactorial (poor p.o. intake/liver disease) Hypoglycemia improved with the addition of dextrose in IVF Continue FS BS 6 hours Not taking p.o r/t mental status Discussed with daughter today; does not want alternate means of nutrition. (10) PVD (peripheral vascular disease) Is this a current diagnosis for this admission?: Yes Plan: S/P LLE revascularization, according to daughter - (likely axillofemoral bypass) Continue atorvastatin 40 mg p.o. daily (11) Severe sepsis Is this a current diagnosis for this admission?: Yes Plan: Patient afebrile, WBCs nml. He is hypotensive, hoever, this is likel r/t liver disease. Blood cultures 05/19/2020: NGTD Urine culture: >100,000 col/ml Enterococcus Raffinosus Completed full course of Vancomycin (12) Thrombocytopenia Is this a current diagnosis for this admission?: Yes Plan: Related to chronic liver disease Patient scattered ecchymosis is becoming worse. He now has ecchymosis scattered over UEs, torso, and LEs VTE chemoprophylaxis stopped 2/2 count less than 100, slowly trending up Monitor (13) DNR (do not resuscitate) Is this a current diagnosis for this admission?: Yes - Time Time Spent with patient: 35 or more minutes Medications reviewed and adjusted accordingly: Yes Anticipated Discharge Disposition: Anticipate patient will this admission Anticipated Discharge Timeframe: UTD
[2020-05-26] MEDS: ATORVASTATIN CALCIUM 40 MG TABLET PO SCH (22:25)
[2020-05-27] MEDS: DEXTROSE 5%-WATER 1000 ML 1,000 ML IV PRN (02:39)
[2020-05-27] MEDS: METHYLPREDNISOLONE INJ 40 MG/1 ML SDV IV SCH (05:47)
[2020-05-27] MEDS: ASPIRIN 81 MG TABLET, ENT COATED PO SCH (10:03)
[2020-05-27] MEDS: FERROUS SULFATE 325 MG TABLET PO SCH ×2 (10:03→22:58)
[2020-05-27] MEDS: LACTULOSE SYRUP 20 GM/30 ML UDCUP PO SCH ×2 (10:03→22:58)
[2020-05-27] MEDS: TAMSULOSIN HCL 0.4 MG CAP.SR.24H PO SCH (10:03)
[2020-05-27] MEDS: FOLIC ACID 1 MG TABLET PO SCH (10:03)
[2020-05-27] MEDS: PANTOPRAZOLE SODIUM 40 MG TABLET.DR PO SCH ×2 (10:03→22:58)
[2020-05-27] MEDS: ASCORBIC ACID 500 MG TABLET PO SCH (10:04)
[2020-05-27] MEDS: MULTIVITAMIN TABLET PO SCH (10:04)
[2020-05-27] MEDS: ZINC SULFATE 220 MG CAPSULE PO SCH (10:04)
[2020-05-27] MEDS: SERTRALINE HCL 50 MG TABLET PO SCH (10:04)
[2020-05-27] MEDS: THIAMINE HCL 100 MG TABLET PO SCH (10:04)
[2020-05-27] MEDS ORDERED: MORPHINE SULFATE 10 MG/ML INJ IV PRN (13:15)
[2020-05-27] MEDS: COLLAGENASE CLOSTRIDIUM HIST. OINT 30 GM TP SCH (17:07)
[2020-05-27] MEDS ORDERED: HALOPERIDOL LACTATE INJ 5 MG/1 ML VIAL IV PRN (17:24)
--- NOTE | 2020-05-27 17:32 | PDOC PROGRESS REPORT ---
Subjective Progress Note for:: 05/27/20 Subjective:: Patient was seen on morning rounds. He is found resting in bed on supplemental oxygen by nasal cannula at 3 L/min. He did not respond to sternal rub this morning. Per nursing, has been unresponsive since early last night. He does appear to be comfortable and is not noted to be in any acute distress, however, vital signs show downward trend in heart rate, blood pressure, and SPO2. Discussed plan of care with nursing. -Nursing called this afternoon to report that the patient was awake and demanding to eat. Vital signs are improved. Reason For Visit: SEVERE SEPSIS Physical Exam Vital Signs: Temp Pulse Resp BP Pulse Ox 97.5 F 38 L 14 106/64 91 L 05/27/20 10:00 05/27/20 14:00 05/27/20 11:10 05/27/20 11:10 05/27/20 04:33 Intake & Output 05/26/20 05/27/20 05/28/20 06:59 06:59 06:59 Intake Total 3785 250 Output Total 150 350 Balance 3635 -100 Weight 73.4 kg 76.4 kg General appearance: PRESENT: no acute distress, disheveled, thin, well-developed Head exam: PRESENT: atraumatic, normocephalic Eye exam: PRESENT: conjunctiva pale, EOMI, PERRLA. ABSENT: scleral icterus Ear exam: PRESENT: normal external ear exam Mouth exam: PRESENT: dry mucosa, tongue midline Teeth exam: PRESENT: poor dentation Respiratory exam: PRESENT: prolonged expiratory phas, rhonchi, symmetrical, other - Supplemental oxygen by nasal cannula. ABSENT: rales, wheezes Cardiovascular exam: PRESENT: bradycardia, irregular rhythm. ABSENT: diastolic murmur, rubs, systolic murmur Vascular exam: PRESENT: normal capillary refill Rectal exam: PRESENT: deferred Extremities exam: PRESENT: full ROM. ABSENT: calf tenderness, clubbing, pedal edema Neurological exam: PRESENT: other - obtunded Skin exam: PRESENT: dry, skin tears, warm, other - Scattered ecchymosis. ABSENT: cyanosis, rash Results Laboratory Results: 05/26/20 05:15 05/26/20 05:15 05/20/20 05/22/20 05/23/20 05:36 06:55 05:47 NT-Pro-B Natriuret Pep 3350 H 5740 H 5400 H 05/24/20 05:38 NT-Pro-B Natriuret Pep 6750 H Impressions: Knee X-Ray 05/19/20 14:28 IMPRESSION: No evidence of acute osseous injury. Background of mild tricompartmental degenerative changes. Assessment and Plan - Diagnosis (1) Alcoholic liver disease Is this a current diagnosis for this admission?: Yes Plan: Ammonia level WNL Continue lactulose 20 g p.o. twice daily. Due to patient's mentation, he is not received his lactulose x6 doses. Ammonia level is acceptable. Previous provider discussed with daughter concern regarding placing NG tube (secondary to possible varices). Daughter has requested we not place NG tube. No improvement in blood pressure with IV fluids, Solu-Medrol, and albumin. Spoke with patient's daughter again by phone yesterday. Informed her that his vital signs were worsening and I did not have confidence that we would be able to turn his condition around even with aggressive measures. I inquired as to whether or not she had had the opportunity discussed with family recommendations for transition to hospice services. She states that she has not had a chance to do so yet wants us to continue our current interventions, without escalation should he decondition further. I did inform her that I felt that she needed to come to visit and as soon as possible that he did not anticipate that he had much time left. She was able to visit last night. (2) Afib Is this a current diagnosis for this admission?: Yes Plan: A. fib likely longstanding persistent At this time patient is not a candidate for anticoagulation (risks outweigh benefits) 2/2 underlying liver disease, thrombocytopenia, and fall risk. Currently bradycardic without medications (n.p.o. status secondary to menta tion). Continue monitor on telemetry. (3) KIRSTIE (acute kidney injury) Is this a current diagnosis for this admission?: Yes Plan: Resolved. Avoid nephrotoxic medications as able. Renally dosed where appropriate. Follow-up chemistries. (4) Anemia Is this a current diagnosis for this admission?: Yes Plan: Anemia is chronic H/H remained stable after initial drop which represents a delusional component Anemia panel reveals mild iron deficiency anemia; iron 21.4, TIBC 164, ferritin 122, B12 515. Continue FeSO4 325 mg p.o. twice daily once taking p.o. Monitor (5) Bacteriuria with pyuria Is this a current diagnosis for this admission?: Yes Plan: Urinalysis revealed UTI. Urine culture positive for enterococcus raffinosus Blood cultures negative at 5 days. Completed 7-day course of vancomycin. (6) Chronic systolic heart failure Is this a current diagnosis for this admission?: Yes Plan: Patient's initial CXR is concerning for early CHF however initially he needed volume resuscitation 2/2 sepsis Repeat CXR slightly worse BNP 5400-> 6750 Weight down ~ 2 kg since admission No improvement in blood pressure with IV fluids, Solu-Medrol, or albumin. Low dose furosemide if SBP>100 to attempt to mobilize fluid. Patient less bradycardic today however, will leave him off digoxin (7) Dilated cardiomyopathy Is this a current diagnosis for this admission?: Yes Plan: Unfortunately, not taking p.o. at this time. Primary management as above. We will need to continue to monitor volume status closely (8) Encephalopathy Is this a current diagnosis for this admission?: Yes Plan: Acute metabolic encephalopathy r/t acute infection in setting of chronic alcoholic hepatits. Ammonia level is appropriate Persistent/worsening. Obtunded but Now awake. Should his mentation decrease again, will obtain stat EEG. Unfortunately, we do not have continuous EEG monitoring available. May benefit from AED. Fall precautions. Supportive care. (9) Hypoglycemia Is this a current diagnosis for this admission?: Yes Plan: Improved; no hypoglycemic events Likely multifactorial (poor p.o. intake/liver disease) Hypoglycemia improved with the addition of dextrose in IVF Continue FS BS 6 hours Not taking p.o r/t mental status Discussed with daughter today; does not want alternate means of nutrition. (10) PVD (peripheral vascular disease) Is this a current diagnosis for this admission?: Yes Plan: S/P LLE revascularization, according to daughter - (likely axillofemoral bypass) Continue atorvastatin 40 mg p.o. daily (11) Severe sepsis Is this a current diagnosis for this admission?: Yes Plan: Patient afebrile, WBCs nml. He is hypotensive, hoever, this is likel r/t liver disease. Blood cultures 05/19/2020: NGTD Urine culture: >100,000 col/ml Enterococcus Raffinosus Completed full course of Vancomycin (12) Thrombocytopenia Is this a current diagnosis for this admission?: Yes Plan: Related to chronic liver disease Patient scattered ecchymosis is becoming worse. He now has ecchymosis scattered over UEs, torso, and LEs VTE chemoprophylaxis stopped 2/2 count less than 100, slowly trending up Monitor (13) DNR (do not resuscitate) Is this a current diagnosis for this admission?: Yes - Time Time Spent with patient: 25-34 minutes Medications reviewed and adjusted accordingly: Yes Anticipated Discharge Disposition: unclear Anticipated Discharge Timeframe: unclear
[2020-05-27] MEDS: ATORVASTATIN CALCIUM 40 MG TABLET PO SCH (21:58)
[2020-05-28 06:52] LABS: HEMATOCRIT 28.7 % (37.9-51.0); HEMOGLOBIN 9.6 g/dL (13.5-17.0); MEAN CORPUSCULAR HGB CONC 33.5 g/dL (32.0-36.0); MEAN CORPUSCULAR VOLUME 93 fl (80-97); WHITE BLOOD COUNT 8.9 10^3/uL (4.0-10.5)
[2020-05-28 06:53] LABS: PLATELET COUNT 92 10^3/uL (150-450)
[2020-05-28 06:54] LABS: BLOOD UREA NITROGEN 20 mg/dL (7-20); CHLORIDE 104 mmol/L (98-107); GLUCOSE 91 mg/dL (75-110); POTASSIUM 4.5 mmol/L (3.6-5.0)
[2020-05-28 07:00] LABS: CARBON DIOXIDE 21 mmol/L (22-30)
[2020-05-28 07:03] LABS: ANION GAP 3 (5-19)
[2020-05-28] MEDS: FOLIC ACID 1 MG TABLET PO SCH (10:00)
[2020-05-28] MEDS: SERTRALINE HCL 50 MG TABLET PO SCH (10:00)
[2020-05-28] MEDS: MULTIVITAMIN TABLET PO SCH (10:00)
[2020-05-28] MEDS: ASPIRIN 81 MG TABLET, ENT COATED PO SCH (10:00)
[2020-05-28] MEDS: FERROUS SULFATE 325 MG TABLET PO SCH ×2 (10:00→18:30)
[2020-05-28] MEDS: ASCORBIC ACID 500 MG TABLET PO SCH (10:00)
[2020-05-28] MEDS: PANTOPRAZOLE SODIUM 40 MG TABLET.DR PO SCH ×2 (10:00→18:31)
[2020-05-28] MEDS: TAMSULOSIN HCL 0.4 MG CAP.SR.24H PO SCH (10:00)
[2020-05-28] MEDS: THIAMINE HCL 100 MG TABLET PO SCH (10:00)
[2020-05-28] MEDS: ZINC SULFATE 220 MG CAPSULE PO SCH (10:00)
[2020-05-28 12:01] LABS: ALBUMIN 2.2 g/dL (3.5-5.0); ALKALINE PHOSPHATASE 140 U/L (38-126); ASPARTATE AMINO TRANSFERASE 111 U/L (17-59); BILIRUBIN,DIRECT 0.4 mg/dL (0.0-0.4); BILIRUBIN,TOTAL 0.7 mg/dL (0.2-1.3); TOTAL PROTEIN 5.6 g/dL (6.3-8.2)
[2020-05-28] MEDS: LACTULOSE SYRUP 20 GM/30 ML UDCUP PO SCH ×2 (16:44→18:21)
[2020-05-28] MEDS: ACETAMINOPHEN 325 MG TABLET PO PRN (18:30)
[2020-05-28] MEDS: COLLAGENASE CLOSTRIDIUM HIST. OINT 30 GM TP SCH (18:32)
[2020-05-28] MEDS: ATORVASTATIN CALCIUM 40 MG TABLET PO SCH (21:09)
[2020-05-28] MEDS ORDERED: LACTULOSE SYRUP 20 GM/30 ML UDCUP PO ONE (21:30)
[2020-05-29 08:30] LABS: HEMATOCRIT 28.5 % (37.9-51.0); HEMOGLOBIN 9.5 g/dL (13.5-17.0); MEAN CORPUSCULAR HEMOGLOBIN 31.5 pg (27.0-33.4); MEAN CORPUSCULAR HGB CONC 33.3 g/dL (32.0-36.0); MEAN CORPUSCULAR VOLUME 94 fl (80-97); RED BLOOD COUNT 3.02 10^6/uL (4.35-5.55); RED CELL DISTRIBUTION WIDTH 20.8 % (11.5-14.0); WHITE BLOOD COUNT 4.4 10^3/uL (4.0-10.5)
[2020-05-29 08:36] LABS: ALKALINE PHOSPHATASE 144 U/L (38-126); ANION GAP 6 (5-19); ASPARTATE AMINO TRANSFERASE 83 U/L (17-59); BILIRUBIN,DIRECT 0.4 mg/dL (0.0-0.4); BILIRUBIN,TOTAL 0.7 mg/dL (0.2-1.3); BLOOD UREA NITROGEN 19 mg/dL (7-20); CARBON DIOXIDE 19 mmol/L (22-30); CHLORIDE 108 mmol/L (98-107); GLUCOSE 91 mg/dL (75-110); POTASSIUM 3.6 mmol/L (3.6-5.0); TOTAL PROTEIN 5.1 g/dL (6.3-8.2)
[2020-05-29 08:44] LABS: CALCIUM 6.8 mg/dL (8.4-10.2)
[2020-05-29] MEDS ORDERED: SCOPOLAMINE HYDROBROMIDE 1.5 MG PATCH.TD72 TD ONE (09:00)
[2020-05-29 09:09] LABS: PLATELET COUNT 64 10^3/uL (150-450)
[2020-05-29] MEDS: ACETAMINOPHEN 325 MG TABLET PO PRN (09:45)
[2020-05-29] MEDS: ASPIRIN 81 MG TABLET, ENT COATED PO SCH (09:45)
[2020-05-29] MEDS: MULTIVITAMIN TABLET PO SCH (09:45)
[2020-05-29] MEDS: PANTOPRAZOLE SODIUM 40 MG TABLET.DR PO SCH ×2 (09:46→17:46)
[2020-05-29] MEDS: THIAMINE HCL 100 MG TABLET PO SCH (09:46)
[2020-05-29] MEDS: FOLIC ACID 1 MG TABLET PO SCH (09:46)
[2020-05-29] MEDS: ASCORBIC ACID 500 MG TABLET PO SCH (09:46)
[2020-05-29] MEDS: ZINC SULFATE 220 MG CAPSULE PO SCH (09:46)
[2020-05-29] MEDS: TAMSULOSIN HCL 0.4 MG CAP.SR.24H PO SCH (09:46)
[2020-05-29] MEDS: FERROUS SULFATE 325 MG TABLET PO SCH ×2 (09:46→17:45)
[2020-05-29] MEDS: SERTRALINE HCL 50 MG TABLET PO SCH (09:46)
[2020-05-29] MEDS: LACTULOSE SYRUP 20 GM/30 ML UDCUP PO SCH ×2 (09:46→17:45)
[2020-05-29] MEDS: COLLAGENASE CLOSTRIDIUM HIST. OINT 30 GM TP SCH (09:59)
--- NOTE | 2020-05-29 12:31 | RADIOLOGY REPORT (SQ) ---
EXAM DESCRIPTION: MRI HEAD WITHOUT IMAGES COMPLETED DATE/TIME: 05/29/2020 12:07 pm REASON FOR STUDY: altered mental status COMPARISON: None. TECHNIQUE: Multiplanar imaging includes non-contrasted T1, T2, FLAIR, and diffusion with ADC map seq uences. Images stored on PACS. LIMITATIONS: None. FINDINGS: ANATOMY: No anomalies. Normal vascular flow voids. Pituitary fossa normal. CSF SPACES: Severe Atrophy induced prominence of ventricles and CSF spaces. CEREBRUM: Extent High signal intensity lesions scattered throughout the white matter on FLAIR imaging with distribution suggesting micro-vascular ischemic changes. Old left occipital infarct. No evide nce of hemorrhage, mass, or extraaxial fluid collection. POSTERIOR FOSSA: No signal alteration. No hemorrhage. No edema, masses or mass effect. Internal joslyn tory canals, cerebello-pontine angles, mastoids normal. DIFFUSION IMAGING: Negative for acute or sub-acute infarction. ORBITS: No masses. Globes normal. PARANASAL SINUSES: No fluid levels. Mucosa normal. OTHER: 2 cm soft-tissue mass and no incompletely imaged. Left side anterior to the vascular spaces. IMPRESSION: Severe ATROPHY AND CHRONIC MICRO-VASCULAR ISCHEMIC CHANGES. Soft tissue mass in the neck. EVIDENCE OF ACUTE STROKE: NO. COMMENT: Recommend CT of the soft tissues of the neck with IV contrast. TECHNICAL DOCUMENTATION: JOB ID: [id number] 2010 [employer]- All Rights Reserved Reading location - IP/workstation name: [email or web address]
--- NOTE | 2020-05-29 14:16 | PDOC PROGRESS REPORT ---
Subjective Progress Note for:: 05/29/20 Subjective:: Patient was seen on morning rounds. He is found resting in bed on supplemental oxygen by nasal cannula at 4 L/min. He is awake, alert and orientated to self, "hospital," and "1979." He does respond to my other questions, though w/ incoherent speech. Nursing reports that he did eat a few bites of food with assistance. He does appear to be comfortable and is not noted to be in any acute distress. However, vital signs are again concerning with heart rate 30s, labile blood pressure, and rectal temp of 94. Discussed plan of care with nursing. Spoke with the patient's daughter again by phone (this is her fourth conversation). Reviewed MRI results. Discussed that although the patient was alert and oriented x2 and did eat a few bites of food this morning that his vital signs had worsened. We discussed his chronic medical conditions and the difficulty in predicting his lifespan. I did explain that the patient was on hospice (comfort care) appropriate and that, at this time, were artificially prolonging his life by continuing IV fluids. I asked the daughter if she might consider transition to comfort care. She states that she wishes us to continue care as it currently stands. Clarify that this meant that we would continue IV fluids but not intervene further if the peritoneum Reason For Visit: SEVERE SEPSIS Physical Exam Vital Signs: Temp Pulse Resp BP Pulse Ox 97.3 F 51 L 20 89/44 L 97 05/29/20 10:00 05/29/20 08:19 05/29/20 08:19 05/29/20 08:19 05/29/20 08:19 Intake & Output 05/28/20 05/29/20 05/30/20 06:59 06:59 06:59 Intake Total 1100 740 Output Total 680 620 Balance 420 120 Weight 76.2 kg 75.2 kg General appearance: PRESENT: thin, well-nourished Head exam: PRESENT: atraumatic, normocephalic Eye exam: PRESENT: conjunctiva pink, EOMI, PERRLA. ABSENT: scleral icterus Mouth exam: PRESENT: dry mucosa, tongue midline Teeth exam: PRESENT: poor dentation Respiratory exam: PRESENT: rhonchi, symmetrical, unlabored, other - Supplemental oxygen by nasal cannula.. ABSENT: rales, wheezes Cardiovascular exam: PRESENT: bradycardia, irregular rhythm. ABSENT: diastolic murmur, rubs, systolic murmur Vascular exam: PRESENT: pallor Rectal exam: PRESENT: deferred Extremities exam: ABSENT: calf tenderness, clubbing, pedal edema Neurological exam: PRESENT: alert, awake, oriented to person, oriented to place. ABSENT: motor sensory deficit Skin exam: PRESENT: dry, warm, other - Scattered ecchymosis. ABSENT: cyanosis, rash Results Laboratory Results: 05/29/20 08:04 05/29/20 08:04 05/29/20 05/29/20 08:04 08:04 WBC 4.4 RBC 3.02 L Hgb 9.5 L Hct 28.5 L MCV 94 MCH 31.5 MCHC 33.3 RDW 20.8 H Plt Count 64 L Sodium 133.0 L Potassium 3.6 Chloride 108 H Carbon Dioxide 19 L Anion Gap 6 BUN 19 Creatinine 0.82 Est GFR ( Amer) > 60 Glucose 91 Calcium 6.8 L* Magnesium 2.1 Total Bilirubin 0.7 AST 83 H Alkaline Phosphatase 144 H Total Protein 5.1 L Albumin 2.0 L 05/20/20 05/22/20 05/23/20 05:36 06:55 05:47 NT-Pro-B Natriuret Pep 3350 H 5740 H 5400 H 05/24/20 05:38 NT-Pro-B Natriuret Pep 6750 H Impressions: Knee X-Ray 05/19/20 14:28 IMPRESSION: No evidence of acute osseous injury. Background of mild tricompartmental degenerative changes. Head MRI 05/29/20 00:00 IMPRESSION: Severe ATROPHY AND CHRONIC MICRO-VASCULAR ISCHEMIC CHANGES. Soft tissue mass in the neck. EVIDENCE OF ACUTE STROKE: NO. Assessment and Plan - Diagnosis (1) Encephalopathy Is this a current diagnosis for this admission?: Yes Plan: Mentation wax/wanes Acute metabolic encephalopathy r/t acute infection in setting of chronic alcoholic hepatits. Ammonia level is appropriate Head MRI revealed severe atrophy and chronic microvascular ischemic changes with out acute findings. Laboratory evaluation including CBC and CMP is grossly unremarkable. Persistent/worsening. Obtunded but Now A&Ox2 May benefit from AED. Fall precautions. Supportive care. (2) Alcoholic liver disease Is this a current diagnosis for this admission?: Yes Plan: Ammonia level WNL Continue lactulose 20 g p.o. twice daily. Due to patient's mentation, he is not received his lactulose x6 doses. Ammonia level is acceptable. Previous provider discussed with daughter concern regarding placing NG tube (secondary to possible varices). Daughter has requested we not place NG tube. No improvement in blood pressure with IV fluids, Solu-Medrol, and albumin. Multiple conversations had with daughter. She understands that the patient is not adequately taking in enough nutrition or fluids to be life-sustaining; further, not consistently taking medications. She again confirms that she does not want NG tube or PEG tube placement. She specifically requests continued IV fluids. She is interested in the patient remaining in the hospital for the duration of his life, however, she declines to transition fully to comfort care measures at this time. She requests, "keep doing what you are, its too hard to decide on hospice right now." (3) Afib Is this a current diagnosis for this admission?: Yes Plan: A. fib likely longstanding persistent At this time patient is not a candidate for anticoagulation (risks outweigh benefits) 2/2 underlying liver disease, thrombocytopenia, and fall risk. Currently bradycardic without medications (n.p.o. status secondary to mentation). Continue monitor on telemetry. (4) KIRSTIE (acute kidney injury) Is this a current diagnosis for this admission?: Yes Plan: Resolved. Avoid nephrotoxic medications as able. Renally dosed where appropriate. Follow-up chemistries. (5) Anemia Is this a current diagnosis for this admission?: Yes Plan: Anemia is chronic H/H remained stable after initial drop which represents a delusional component Anemia panel reveals mild iron deficiency anemia; iron 21.4, TIBC 164, ferritin 122, B12 515. Continue FeSO4 325 mg p.o. twice daily once taking p.o. Monitor (6) Bacteriuria with pyuria Is this a current diagnosis for this admission?: Yes Plan: Urinalysis revealed UTI. Urine culture positive for enterococcus raffinosus Blood cultures negative at 5 days. Completed 7-day course of vancomycin. (7) Chronic systolic heart failure Is this a current diagnosis for this admission?: Yes Plan: Patient's initial CXR is concerning for early CHF however initially he needed volume resuscitation 2/2 sepsis Repeat CXR slightly worse BNP 5400-> 6750 No improvement in blood pressure with IV fluids, Solu-Medrol, or albumin. These have been discontinued. No further evaluation/interventions planned. (8) Dilated cardiomyopathy Is this a current diagnosis for this admission?: Yes Plan: Primary management as above. We will need to continue to monitor volume status closely (9) Hypoglycemia Is this a current diagnosis for this admission?: Yes Plan: Intermittent; secondary to poor p.o. intake. Continue FS BS 6 hours Discussed with daughter again today; does not want alternate means of nutrition. We specifically discussed that IV fluids are artificially prolonging his life. I did advise that the patient was not an adequate amount of nutrition/fluids by mouth to be life sustaining. She was advised that continuing IV fluids indefinitely is not a viable option; suggest that her goal is to prolong life, we should consider a permanent means of not visual nutrition such as PEG tube. She again states that she is not interested in feeding tubes. She specifically requests that we continue IV fluids but not intervene further if the patient were to decompensate further. (10) PVD (peripheral vascular disease) Is this a current diagnosis for this admission?: Yes Plan: S/P LLE revascularization, according to daughter - (likely axillofemoral bypass) Continue atorvastatin 40 mg p.o. daily (11) Severe sepsis Is this a current diagnosis for this admission?: Yes Plan: Resolved. Blood cultures 05/19/2020: NGTD Urine culture: >100,000 col/ml Enterococcus Raffinosus Completed full course of Vancomycin (12) Thrombocytopenia Is this a current diagnosis for this admission?: Yes Plan: Related to chronic liver disease Patient scattered ecchymosis is becoming worse. He now has ecchymosis scattered over UEs, torso, and LEs VTE chemoprophylaxis stopped 2/2 count less than 100, slowly trending up Monitor (13) DNR (do not resuscitate) Is this a current diagnosis for this admission?: Yes (14) Bradycardia Is this a current diagnosis for this admission?: Yes Plan: Trial scopolamine patch (15) Hypothermia Qualifiers: Encounter type: initial encounter Qualified Code(s): T68.XXXA - Hy pothermia, initial encounter Is this a current diagnosis for this admission?: Yes Plan: Evidence of end-of-life process. Coincides with bradycardia and hypotension. Adjustments to room temperature but no other interventions planned at this time unless the patient develops shivering and/or appears to be uncomfortable. - Time Time Spent with patient: 35 or more minutes Medications reviewed and adjusted accordingly: Yes Anticipated Discharge Disposition: end of life Anticipated Discharge Timeframe: family decision on disposition ([facility]/Hospice)
[2020-05-29] MEDS: NORMAL SALINE 1000 ML 1,000 ML IV PRN (15:33)
[2020-05-29] MEDS: ATORVASTATIN CALCIUM 40 MG TABLET PO SCH (22:38)
[2020-05-30] MEDS: FOLIC ACID 1 MG TABLET PO SCH (09:35)
[2020-05-30] MEDS: PANTOPRAZOLE SODIUM 40 MG TABLET.DR PO SCH ×2 (09:35→17:52)
[2020-05-30] MEDS: LACTULOSE SYRUP 20 GM/30 ML UDCUP PO SCH ×2 (09:35→17:52)
[2020-05-30] MEDS: ASPIRIN 81 MG TABLET, ENT COATED PO SCH (09:36)
[2020-05-30] MEDS: MULTIVITAMIN TABLET PO SCH (09:36)
[2020-05-30] MEDS: SERTRALINE HCL 50 MG TABLET PO SCH (09:36)
[2020-05-30] MEDS: ASCORBIC ACID 500 MG TABLET PO SCH (09:36)
[2020-05-30] MEDS: THIAMINE HCL 100 MG TABLET PO SCH (09:36)
[2020-05-30] MEDS: FERROUS SULFATE 325 MG TABLET PO SCH ×2 (09:36→17:52)
[2020-05-30] MEDS: ZINC SULFATE 220 MG CAPSULE PO SCH (09:36)
[2020-05-30] MEDS: TAMSULOSIN HCL 0.4 MG CAP.SR.24H PO SCH (09:36)
[2020-05-30] MEDS: COLLAGENASE CLOSTRIDIUM HIST. OINT 30 GM TP SCH (09:45)
--- NOTE | 2020-05-30 13:01 | PDOC PROGRESS REPORT ---
Subjective Progress Note for:: 05/30/20 Subjective:: Patient was seen on morning rounds. He is found resting in bed on supplemental oxygen by nasal cannula at 4 L/min. He is awake, A&O to self and place. He is much more alert and conversational today. He states that he feels okay, and would "like to get well." Noted to be eating breakfast w/ assistance; took morning medications w/o difficulty. He denies all symptoms; has no questions or concerns today. Discussed plan of care with nursing. Reason For Visit: SEVERE SEPSIS Physical Exam Vital Signs: Temp Pulse Resp BP Pulse Ox 97.5 F 54 L 16 100/47 L 93 05/30/20 11:55 05/30/20 11:55 05/30/20 11:55 05/30/20 11:55 05/30/20 11:55 Intake & Output 05/29/20 05/30/20 05/31/20 06:59 06:59 06:59 Intake Total 740 210 Output Total 620 650 Balance 120 -440 Weight 75.2 kg 77.7 kg 77.2 kg General appearance: PRESENT: no acute distress, thin, well-developed Head exam: PRESENT: atraumatic, normocephalic Eye exam: PRESENT: conjunctiva pink, EOMI, PERRLA. ABSENT: scleral icterus Mouth exam: PRESENT: moist, tongue midline Respiratory exam: PRESENT: clear to auscultation amy, symmetrical, unlabored, other - Supplemental oxygen by nasal cannula. ABSENT: rales, rhonchi, wheezes Cardiovascular exam: PRESENT: RRR. ABSENT: diastolic murmur, rubs, systolic murmur Pulses: PRESENT: +1 pedal pulses bilateral Vascular exam: PRESENT: normal capillary refill Gentrourinary exam: PRESENT: indwelling catheter Extremities exam: ABSENT: calf tenderness, clubbing, pedal edema Neurological exam: PRESENT: alert, awake, oriented to person, oriented to place, CN II-XII grossly intact. ABSENT: motor sensory deficit Psychiatric exam: PRESENT: appropriate affect, normal mood. ABSENT: homicidal ideation, suicidal ideation Skin exam: PRESENT: dry, skin tears, warm, other - scattered ecchymosis. ABSENT: cyanosis, rash Results Laboratory Results: 05/29/20 08:04 05/29/20 08:04 05/20/20 05/22/20 05/23/20 05:36 06:55 05:47 NT-Pro-B Natriuret Pep 3350 H 5740 H 5400 H 05/24/20 05:38 NT-Pro-B Natriuret Pep 6750 H Impressions: Knee X-Ray 05/19/20 14:28 IMPRESSION: No evidence of acute osseous injury. Background of mild tricom partmental degenerative changes. Head MRI 05/29/20 00:00 IMPRESSION: Severe ATROPHY AND CHRONIC MICRO-VASCULAR ISCHEMIC CHANGES. Soft tissue mass in the neck. EVIDENCE OF ACUTE STROKE: NO. Assessment and Plan - Diagnosis (1) Encephalopathy Is this a current diagnosis for this admission?: Yes Plan: Mentation wax/wanes; improved today Acute metabolic encephalopathy r/t acute infection in setting of chronic alcoholic hepatits. Ammonia level is appropriate Head MRI revealed severe atrophy and chronic microvascular ischemic changes without acute findings. Laboratory evaluation including CBC and CMP is grossly unremarkable. Will trial Midodrine for blood pressure support. Scapolamine patch for improved HR. Fall precautions. Supportive care. (2) Alcoholic liver disease Is this a current diagnosis for this admission?: Yes Plan: Ammonia level WNL Continue lactulose 20 g p.o. twice daily. Due to patient's mentation, he is not received his lactulose x6 doses. Ammonia level is acceptable. Previous provider discussed with daughter concern regarding placing NG tube (secondary to possible varices). Daughter has requested we not place NG tube. No improvement in blood pressure with IV fluids, Solu-Medrol, and albumin. Multiple conversations had with daughter. She understands that the patient is not adequately taking in enough nutrition or fluids to be long-term life-sustaining; further, not consistently taking medications. She again confirms that she does not want NG tube or PEG tube placement. She specifically requests continued IV fluids (currently KVO). She is interested in the patient remaining in the hospital for the duration of his life, however, she declines to transition fully to comfort care measures at this time. Discussed that current interventions exceed capabilities of SNF. She requests, "keep doing what you are, its too hard to decide on hospice right now." Will trial Midodrine for blood pressure support. Scapolamine patch for improved HR. Continue home dose lactulose and protonix. (3) Afib Is this a current diagnosis for this admission?: Yes Plan: A. fib likely longstanding persistent At this time patient is not a candidate for anticoagulation (risks outweigh benefits) 2/2 underlying liver disease, thrombocytopenia, and fall risk. Currently bradycardic without medications (n.p.o. status secondary to mentation). Continue monitor on telemetry. (4) KIRSTIE (acute kidney injury) Is this a current diagnosis for this admission?: Yes Plan: Resolved. Avoid nephrotoxic medications as able. Renally dosed where appropriate. Follow-up chemistries. (5) Anemia Is this a current diagnosis for this admission?: Yes Plan: Anemia is chronic H/H remained stable after initial drop which represents a delusional component Anemia panel reveals mild iron deficiency anemia; iron 21.4, TIBC 164, ferritin 122, B12 515. Continue FeSO4 325 mg p.o. twice daily once taking p.o. Monitor (6) Bacteriuria with pyuria Is this a current diagnosis for this admission?: Yes Plan: Urinalysis revealed UTI. Urine culture positive for enterococcus raffinosus Blood cultures negative at 5 days. Completed 7-day course of vancomycin. (7) Chronic systolic heart failure Is this a current diagnosis for this admission?: Yes Plan: Patient's initial CXR is concerning for early CHF however initially he needed volume resuscitation 2/2 sepsis Repeat CXR slightly worse BNP 5400-> 6750 No improvement in blood pressure with IV fluids, Solu-Medrol, or albumin. These have been discontinued. No further evaluation/interventions planned. (8) Dilated cardiomyopathy Is this a current diagnosis for this admission?: Yes Plan: Primary management as above. We will need to continue to monitor volume status closely (9) Hypoglycemia Is this a current diagnosis for this admission?: Yes Plan: Intermittent; secondary to poor p.o. intake. Continue FS BS 6 hours Discussed with daughter again today; does not want alternate means of nutrition. We specifically discussed that IV fluids are artificially prolonging his life. I did advise that the patient was not an adequate amount of nutrition/fluids by mouth to be life sustaining. She was advised that continuing IV fluids indefinitely is not a viable option; suggest that her goal is to prolong life, we should consider a permanent means of not visual nutrition such as PEG tube. She again states that she is not interested in feeding tubes. She specifically requests that we continue IV fluids but not intervene further if the patient were to decompensate further. (10) PVD (peripheral vascular disease) Is this a current diagnosis for this admission?: Yes Plan: S/P LLE revascularization, according to daughter - (likely axillofemoral bypass) Continue atorvastatin 40 mg p.o. daily (11) Severe sepsis Is this a current diagnosis for this admission?: Yes Plan: Resolved. Blood cultures 05/19/2020: NGTD Urine culture: >100,000 col/ml Enterococcus Raffinosus Completed full course of Vancomycin (12) Thrombocytopenia Is this a current diagnosis for this admission?: Yes Plan: Related to chronic liver disease Patient scattered ecchymosis is becoming worse. He now has ecchymosis scattered over UEs, torso, and LEs VTE chemoprophylaxis stopped 2/2 count less than 100, slowly trending up Monitor (13) DNR (do not resuscitate) Is this a current diagnosis for this admission?: Yes (14) Bradycardia Is this a current diagnosis for this admission?: Yes Plan: Trial scopolamine patch Did continue to have bradycardia 20-30s overnight. (15) Hypothermia Qualifiers: Encounter type: initial encounter Qualified Code(s): T68.XXXA - Hypothermia, initial encounter Is this a current diagnosis for this admission?: Yes Plan: No further episodes. Possibly evidence of end-of-life process. Coincides with bradycardia and hypotension (management as above). Adjustments to room temperature but no other interventions planned at this time unless the patient develops shivering and/or appears to be uncomfortable. - Time Time Spent with patient: 35 or more minutes Medications reviewed and adjusted accordingly: Yes Anticipated Discharge Disposition: Intermediate Facility - w/wo Hospice services Anticipated Discharge Timeframe: within 72 hours
[2020-05-30] MEDS: MIDODRINE HCL 5 MG TABLET PO SCH ×2 (13:18→17:52)
[2020-05-30] MEDS: ATORVASTATIN CALCIUM 40 MG TABLET PO SCH (21:32)
[2020-05-30] MEDS: NORMAL SALINE 1000 ML 1,000 ML IV PRN (22:32)
[2020-05-31 06:29] LABS: HEMATOCRIT 26.1 % (37.9-51.0); HEMOGLOBIN 8.7 g/dL (13.5-17.0); MEAN CORPUSCULAR HEMOGLOBIN 31.2 pg (27.0-33.4); MEAN CORPUSCULAR HGB CONC 33.3 g/dL (32.0-36.0); MEAN CORPUSCULAR VOLUME 94 fl (80-97); RED BLOOD COUNT 2.78 10^6/uL (4.35-5.55); RED CELL DISTRIBUTION WIDTH 19.9 % (11.5-14.0); WHITE BLOOD COUNT 5.6 10^3/uL (4.0-10.5)
[2020-05-31 06:30] LABS: ALBUMIN 1.9 g/dL (3.5-5.0); ALKALINE PHOSPHATASE 184 U/L (38-126); ASPARTATE AMINO TRANSFERASE 61 U/L (17-59); BILIRUBIN,DIRECT 0.5 mg/dL (0.0-0.4); BILIRUBIN,TOTAL 0.7 mg/dL (0.2-1.3); GLUCOSE 81 mg/dL (75-110); POTASSIUM 3.7 mmol/L (3.6-5.0); TOTAL PROTEIN 4.8 g/dL (6.3-8.2)
[2020-05-31 06:32] LABS: BLOOD UREA NITROGEN 16 mg/dL (7-20)
[2020-05-31 06:36] LABS: ANION GAP 5 (5-19); CARBON DIOXIDE 19 mmol/L (22-30); CHLORIDE 109 mmol/L (98-107)
[2020-05-31 07:10] LABS: CALCIUM 6.8 mg/dL (8.4-10.2)
[2020-05-31 07:41] LABS: PLATELET COUNT 58 10^3/uL (150-450)
--- NOTE | 2020-05-31 09:19 | PDOC TRANSFER SUMMARY ---
Impression - Admit/DC Date/PCP Admission Date/Primary Care Provider: 05/19/20 18:51 JAMES STYLES MD Discharge Date: 05/31/20 - Discharge Diagnosis (1) Encephalopathy Is this a current diagnosis for this admission?: Yes (2) Alcoholic liver disease Is this a current diagnosis for this admission?: Yes (3) Afib Is this a current diagnosis for this admission?: Yes (4) KIRSTIE (acute kidney injury) Is this a current diagnosis for this admission?: Yes (5) Anemia Is this a current diagnosis for this admission?: Yes (6) Bacteriuria with pyuria Is this a current diagnosis for this admission?: Yes (7) Chronic systolic heart failure Is this a current diagnosis for this admission?: Yes (8) Dilated cardiomyopathy Is this a current diagnosis for this admission?: Yes (9) Hypoglycemia Is this a current diagnosis for this admission?: Yes (10) PVD (peripheral vascular disease) Is this a current diagnosis for this admission?: Yes (11) Severe sepsis Is this a current diagnosis for this admission?: Yes (12) Thrombocytopenia Is this a current diagnosis for this admission?: Yes (13) DNR (do not resuscitate) Is this a current diagnosis for this admission?: Yes (14) Bradycardia Is this a current diagnosis for this admission?: Yes (15) Hypothermia Is this a current diagnosis for this admission?: Yes - Additional Information Resuscitation Status: Do Not Resuscitate Discharge Diet: As Tolerated, Cardiac Discharge Activity: Activity As Tolerated, Supervised Activity Referrals: JAMES STYLES MD [Primary Care Provider] - Follow up as needed Prescriptions: Midodrine HCl [Proamatine 5 mg Tablet] 5 mg PO TID #90 tablet Home Medications: Amino AC/Protein Hydr/Whey Pro [Prosource Plus Liquid Packet] 30 ml PO BID 05/19/20 Ascorbic Acid [Vitamin C] 250 mg PO DAILY 05/19/20 Aspirin [Ecotrin 81 mg EC Tablet] 81 mg PO DAILY 05/19/20 Atorvastatin Calcium [Lipitor 40 mg Tablet] 40 mg PO QHS 05/19/20 Collagenase Clostridium Hist. [Santyl Ointment 30 gm] 1 applic TP DAILY 05/19/20 Ferrous Sulfate [Feosol 325 mg Tablet] 325 mg PO BID 05/19/20 Folic Acid [Folvite 1 mg Tablet] 1 mg PO DAILY 05/19/20 Lactulose [Cephulac Syrup 20 gm/30 ml Udcup] 20 gm PO BID 05/19/20 Multivitamin with Minerals [One Daily Plus Minerals] 1 each PO DAILY 05/19/20 Pantoprazole Sodium [Protonix [address] Tablet] 40 mg PO BID 05/19/20 Sertraline HCl 25 mg PO DAILY 05/19/20 Tamsulosin HCl [Flomax 0.4 mg Cap.sr] 0.4 mg PO DAILY 05/19/20 Thiamine HCl [Thiamine 100 mg Tablet] 100 mg PO DAILY 05/19/20 Zinc Sulfate [Zinc-220 Capsule] 220 mg PO DAILY 05/19/20 Acetaminophen [Tylenol 325 mg Tablet] 325 mg PO Q4HP PRN tablet 05/31/20 Midodrine HCl [Proamatine 5 mg Tablet] 5 mg PO TID #90 tablet 05/31/20 History of Present Illiness History of Present Illness: Per H&P Rafael Angulo: RANDOLPH RAMOS is a 69 year old male with PMH significant for A. 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 According to the notes the patient has lost approximately 20 pounds in the preceding month. He has been undergoing treatment with antibiotics for a right knee infection. On arrival in the ED the patient was hypotensive. Labs were obtained and he was found to have a lactic acidosis with a lactic acid of 2.3. He was given fluid boluses with improvement in his blood pressure initially however, at the time of the evaluation by the hospitalist his blood pressure had drifted down with a systolic in the 60s. An additional 1 liter of IVF was ordered at that time. A right knee x-ray was completed which revealed no evidence of acute osseous injury. There was background mild tricompartmental degenerative changes. Additionally, a CXR was completed which revealed persistent versus recurrent mixed interstitial and space opacities which could represent early CHF, atypical infection, or interstitial lung disease. He also was noted to have small bilateral pleural effusions. The patient was admitted for further evaluation and treatment. Hospital Course Hospital Course: (1) Encephalopathy Resolved; has been A&Ox2 x48 hrs w/ ~25% of meals Acute metabolic encephalopathy r/t acute infection in setting of chronic alcoholic hepatits. Ammonia level is appropriate Head MRI revealed severe atrophy and chronic microvascular ischemic changes without acute findings. Laboratory evaluation including CBC and CMP is grossly unremarkable. Continue trial Midodrine for blood pressure support. Scapolamine patch for improved HR. Fall precautions. Supportive care. (2) Alcoholic liver disease Ammonia level WNL Continue lactulose 20 g p.o. twice daily. Due to patient's mentation, he is not received his lactulose x6 doses. Ammonia level is acceptable. Previous provider discussed with daughter concern regarding placing NG tube (s econdary to possible varices). Daughter has requested we not place NG tube. Multiple conversations had with daughter. She understands that the patient is not adequately taking in enough nutrition or fluids to be long-term life-sustaining; further, not consistently taking medications. She again confirms that she does not want NG tube or PEG tube placement. Continue midodrine for blood pressure support. Scapolamine patch for improved HR. Continue home dose lactulose and protonix. Continue Goals of Care discussions. Patient is Hospice appropriate. (3) Afib A. fib likely longstanding persistent At this time patient is not a candidate for anticoagulation (risks outweigh benefits) 2/2 underlying liver disease, thrombocytopenia, and fall risk. Antiarrhythmics were held secondary to bradycardia. Not a candidate for chronic anticoagulation (4) KIRSTIE (acute kidney injury) Resolved. Avoid nephrotoxic medications as able. Renally dosed where appropriate. Follow-up chemistries. (5) Anemia Anemia is chronic H/H remained stable after initial drop which represents a delusional component Anemia panel reveals mild iron deficiency anemia; iron 21.4, TIBC 164, ferritin 122, B12 515. Continue FeSO4 325 mg p.o. twice daily once taking p.o. (6) Bacteriuria with pyuria Urinalysis revealed UTI. Urine culture positive for enterococcus raffinosus Blood cultures negative at 5 days. Completed 7-day course of vancomycin. (7) Chronic systolic heart failure Patient's initial CXR is concerning for early CHF however initially he needed volume resuscitation 2/2 sepsis Repeat CXR slightly worse BNP 5400-> 6750 No improvement in blood pressure with IV fluids, Solu-Medrol, or albumin. These have been discontinued. No further evaluation/interventions planned. (8) Dilated cardiomyopathy Primary management as above. We will need to continue to monitor volume status closely (9) Hypoglycemia Resolved; secondary to poor p.o. intake. Continue FS BS 6 hours Discussed with daughter again; does not want alternate means of nutrition. Patient has now been awake and taking p.o. fluids/nutrition with assistance x72 hours. (10) PVD (peripheral vascular disease) Is this a current diagnosis for this admission?: Yes Plan: S/P LLE revascularization, according to daughter - (likely axillofemoral bypass) Continue atorvastatin 40 mg p.o. daily (11) Severe sepsis Resolved. Blood cultures 05/19/2020: NGTD Urine culture: >100,000 col/ml Enterococcus Raffinosus Completed full course of Vancomycin (12) Thrombocytopenia Related to chronic liver disease He now has ecchymosis scattered over UEs, torso, and LEs; improving VTE chemoprophylaxis stopped 2/2 count less than 100, slowly trending up (13) DNR (do not resuscitate) Is this a current diagnosis for this admission?: Yes (14) Bradycardia Continue scopolamine patch Bradycardia has improved; heart rate now 40s to 60s with improved blood pressures (15) Hypothermia Resolved No further episodes. Possibly evidence of end-of-life process. Coincides with bradycardia and hypotension (management as above). Physical Exam Vital Signs: Temp Pulse Resp BP Pulse Ox 97.5 F 65 16 94/44 L 91 L 05/31/20 07:43 05/31/20 07:43 05/31/20 07:43 05/31/20 07:43 05/31/20 07:43 Intake & Output 05/30/20 05/31/20 06/01/20 06:59 06:59 06:59 Intake Total 210 1169 Output Total 650 375 Balance -440 794 Weight 77.7 kg 77.6 kg General appearance: PRESENT: no acute distress, thin, well-developed Head exam: PRESENT: atraumatic, normocephalic Eye exam: PRESENT: conjunctiva pink, EOMI, PERRLA. ABSENT: scleral icterus Mouth exam: PRESENT: moist, tongue midline Teeth exam: PRESENT: poor dentation Respiratory exam: PRESENT: clear to auscultation amy, rhonchi, symmetrical, unlabored, other - Supplemental oxygen by nasal cannula. ABSENT: rales, wheezes Cardiovascular exam: PRESENT: irregular rhythm. ABSENT: diastolic murmur, rubs, systolic murmur Pulses: PRESENT: +1 pedal pulses bilateral Vascular exam: PRESENT: normal capillary refill GI/Abdominal exam: PRESENT: normal bowel sounds, soft. ABSENT: distended, guarding, mass, organolmegaly, rebound, tenderness Rectal exam: PRESENT: deferred Gentrourinary exam: PRESENT: indwelling catheter Extremities exam: ABSENT: calf tenderness, clubbing, pedal edema Neurological exam: PRESENT: alert, awake, oriented to person, oriented to place, CN II-XII grossly intact. ABSENT: motor sensory deficit Psychiatric exam: PRESENT: appropriate affect, normal mood. ABSENT: homicidal ideation, suicidal ideation Skin exam: PRESENT: dry, skin tears, warm, other - Scattered ecchymosis, bruce sions, skin tears. ABSENT: cyanosis, rash Results Laboratory Results: WBC 5.6 10^3/uL (4.0-10.5) 05/31/20 05:45 RBC 2.78 10^6/uL (4.35-5.55) L 05/31/20 05:45 Hgb 8.7 g/dL (13.5-17.0) L 05/31/20 05:45 Hct 26.1 % (37.9-51.0) L 05/31/20 05:45 MCV 94 fl (80-97) 05/31/20 05:45 MCH 31.2 pg (27.0-33.4) 05/31/20 05:45 MCHC 33.3 g/dL (32.0-36.0) 05/31/20 05:45 RDW 19.9 % (11.5-14.0) H 05/31/20 05:45 Plt Count 58 10^3/uL (150-450) L 05/31/20 05:45 Lymph % (Auto) Not Reportable 05/26/20 05:15 [place] % (Auto) Not Reportable 05/26/20 05:15 Eos % (Auto) Not Reportable 05/26/20 05:15 Baso % (Auto) Not Reportable 05/26/20 05:15 Reticulocyte # 0.044 10^6/uL (0.028-0.122) 05/26/20 05:15 Absolute Neuts (auto) Not Reportable 05/26/20 05:15 Absolute Lymphs (auto) Not Reportable 05/26/20 05:15 Absolute Monos (auto) Not Reportable 05/26/20 05:15 Absolute Eos (auto) Not Reportable 05/26/20 05:15 Absolute Basos (auto) Not Reportable 05/26/20 05:15 Total Counted 100 05/26/20 05:15 Seg Neutrophils % Not Reportable 05/26/20 05:15 Seg Neuts % (Manual) 97 % (42-78) H 05/26/20 05:15 Band Neutrophils % 4 % (3-5) 05/24/20 05:38 Lymphocytes % (Manual) 3 % (13-45) L 05/26/20 05:15 Monocytes % (Manual) 0 % (3-13) L 05/26/20 05:15 Eosinophils % (Manual) 0 % (0-6) 05/26/20 05:15 Basophils % (Manual) 0 % (0-2) 05/26/20 05:15 Abs Neuts (Manual) 7.6 10^3/uL (1.7-8.2) 05/26/20 05:15 Abs Lymphs (Manual) 0.2 10^3/uL (0.5-4.7) L 05/26/20 05:15 Abs Monocytes (Manual) 0.0 10^3/uL (0.1-1.4) L 05/26/20 05:15 Absolute Eos (Manual) 0.0 10^3/uL (0.0-0.6) 05/26/20 05:15 Abs Basophils (Manual) 0.0 10^3/uL (0.0-0.2) 05/26/20 05:15 Platelet Estimate Cancelled 05/20/20 05:36 Platelet Comment DECREASED 05/26/20 05:15 Polychromasia SLIGHT 05/26/20 05:15 Poikilocytosis 1+ 05/26/20 05:15 Anisocytosis 2+ 05/26/20 05:15 Tear Drop Cells SLIGHT 05/26/20 05:15 Ovalocytes SLIGHT 05/25/20 06:22 Retic Count (auto) 1.58 % (0.66-2.85) 05/26/20 05:15 PT 16.0 SEC (11.4-15.4) H 05/22/20 13:40 INR 1.26 05/22/20 13:40 VBG pH 7.38 (7.30-7.42) 05/19/20 13:05 VBG pCO2 40.7 mmHg (35-63) 05/19/20 13:05 VBG HCO3 23.7 mmol/L (20-32) 05/19/20 13:05 VBG Base Excess -1.3 mmol/L 05/19/20 13:05 Sodium 133.2 mmol/L (137-145) L 05/31/20 05:45 Potassium 3.7 mmol/L (3.6-5.0) 05/31/20 05:45 Chloride 109 mmol/L (98-107) H 05/31/20 05:45 Carbon Dioxide 19 mmol/L (22-30) L 05/31/20 05:45 Anion Gap 5 (5-19) 05/31/20 05:45 BUN 16 mg/dL (7-20) 05/31/20 05:45 Creatinine 0.84 mg/dL (0.52-1.25) 05/31/20 05:45 Est GFR ( Amer) > 60 (>60) 05/31/20 05:45 Est GFR (Non-Af Amer) Cancelled 05/20/20 07:15 Est GFR (MDRD) Non-Af > 60 (>60) 05/31/20 05:45 Glucose 81 mg/dL (75-110) 05/31/20 05:45 POC Glucose 134 mg/dL (70-110) H 05/30/20 11:58 Lactic Acid 1.7 mmol/L (0.7-2.1) 05/20/20 05:36 Calcium 6.8 mg/dL (8.4-10.2) L* 05/31/20 05:45 Magnesium 2.1 mg/dL (1.6-2.3) 05/29/20 08:04 Iron 21.4 ug/dL (49-181) L 05/26/20 05:15 TIBC 164 ug/dL (250-450) L 05/26/20 05:15 % Saturation 13 % 05/26/20 05:15 Ferritin 122.00 ng/mL (17.9-464.0) 05/26/20 05:15 Total Bilirubin 0.7 mg/dL (0.2-1.3) 05/31/20 05:45 Direct Bilirubin 0.5 mg/dL (0.0-0.4) H 05/31/20 05:45 Neonat Total Bilirubin Not Reportable 05/31/20 05:45 Neonat Direct Bilirubin Not Reportable 05/31/20 05:45 Neonat Indirect Bili Not Reportable 05/31/20 05:45 AST 61 U/L (17-59) H 05/31/20 05:45 ALT 36 U/L (<50) 05/31/20 05:45 Alkaline Phosphatase 184 U/L (38-126) H 05/31/20 05:45 Ammonia < 8.7 umol/L (9-33) L 05/26/20 05:15 NT-Pro-B Natriuret Pep 4500 pg/mL (<125) H 05/31/20 05:45 Total Protein 4.8 g/dL (6.3-8.2) L 05/31/20 05:45 Albumin 1.9 g/dL (3.5-5.0) L 05/31/20 05:45 EGFR Cancelled 05/20/20 07:15 Vitamin B12 515.0 pg/mL (239-931) 05/26/20 05:15 Folate > 20.00 ng/mL (>2.76) 05/26/20 05:15 Urine Color ROLA 05/19/20 14:30 Urine Appearance TURBID 05/19/20 14:30 Urine pH 6.0 (5.0-9.0) 05/19/20 14:30 Ur Specific [place] 1.013 05/19/20 14:30 Urine Protein 100 mg/dL (NEGATIVE) H 05/19/20 14:30 Urine Glucose (UA) NEGATIVE mg/dL (NEGATIVE) 05/19/20 14:30 Urine Ketones NEGATIVE mg/dL (NEGATIVE) 05/19/20 14:30 Urine Blood LARGE (NEGATIVE) H 05/19/20 14:30 Urine Nitrite NEGATIVE (NEGATIVE) 05/19/20 14:30 Urine Bilirubin NEGATIVE (NEGATIVE) 05/19/20 14:30 Urine Urobilinogen NEGATIVE mg/dL (<2.0) 05/19/20 14:30 Ur Leukocyte Esterase LARGE (NEGATIVE) H 05/19/20 14:30 Urine WBC (Auto) >182 /HPF 05/19/20 14:30 Urine RBC (Auto) 106 /HPF 05/19/20 14:30 Urine Bacteria (Auto) 1+ /HPF 05/19/20 14:30 Urine WBC Clumps MANY /HPF 05/19/20 14:30 Urine Ascorbic Acid 20 (NEGATIVE) H 05/19/20 14:30 Time Trough Drawn 0610 05/25/20 06:22 Vancomycin Trough 17.3 ug/mL (5.0-20.0) 05/25/20 06:22 Digoxin 1.26 ng/mL (0.8-2.0) 05/21/20 05:33 Slides for Path Review Cancelled 05/20/20 05:36 05/20/20 05/22/20 05/23/20 05:36 06:55 05:47 NT-Pro-B Natriuret Pep 3350 H 5740 H 5400 H 05/24/20 05/31/20 05:38 05:45 NT-Pro-B Natriuret Pep 6750 H 4500 H Impressions: Chest X-Ray 05/19/20 14:24 IMPRESSION: Improved radiographic appearance of the chest demonstrating persistent versus recurrent mixed interstitial and airspace opacities. Differential considerations include early CHF exacerbation, atypical infection, interstitial lung disease. Knee X-Ray 05/19/20 14:28 IMPRESSION: No evidence of acute osseous injury. Background of mild tricompartmental degenerative changes. Head MRI 05/29/20 00:00 IMPRESSION: Severe ATROPHY AND CHRONIC MICRO-VASCULAR ISCHEMIC CHANGES. Soft tissue mass in the neck. EVIDENCE OF ACUTE STROKE: NO. Plan Plan of Treatment: Patient is discharged to SNF where he is a long-term resident. Recommend he follow-up with his provider at the earliest available appointment. Strongly recommend transition to hospice services. We had multiple discussions with patient's daughter, she continues to consider end-of-life goals of care. Patient requires assistance with meals and fluid intake. Maintain murillo catheter; outpatient follow up with Urology pending hospice admission for urinary retention. Return to the emergency department, as needed, for concerning symptoms. Time Spent: Greater than 30 Minutes Stroke Is this a Stroke Patient?: No Acute Heart Failure - Is this a Heart Failure Patient?: No
[2020-05-31] MEDS: FERROUS SULFATE 325 MG TABLET PO SCH (10:18)
[2020-05-31] MEDS: FOLIC ACID 1 MG TABLET PO SCH (10:18)
[2020-05-31] MEDS: ASCORBIC ACID 500 MG TABLET PO SCH (10:18)
[2020-05-31] MEDS: LACTULOSE SYRUP 20 GM/30 ML UDCUP PO SCH (10:18)
[2020-05-31] MEDS: MULTIVITAMIN TABLET PO SCH (10:20)
[2020-05-31] MEDS: TAMSULOSIN HCL 0.4 MG CAP.SR.24H PO SCH (10:20)
[2020-05-31] MEDS: PANTOPRAZOLE SODIUM 40 MG TABLET.DR PO SCH (10:20)
[2020-05-31] MEDS: SERTRALINE HCL 50 MG TABLET PO SCH (10:20)
[2020-05-31] MEDS: THIAMINE HCL 100 MG TABLET PO SCH (10:21)
[2020-05-31] MEDS: MIDODRINE HCL 5 MG TABLET PO SCH (10:21)
[2020-05-31] MEDS: ASPIRIN 81 MG TABLET, ENT COATED PO SCH (10:21)
[2020-05-31] MEDS: COLLAGENASE CLOSTRIDIUM HIST. OINT 30 GM TP SCH (10:22)
[2020-05-31] MEDS: ZINC SULFATE 220 MG CAPSULE PO SCH (10:23)
[2020-05-31 12:28] VITALS: BP 91/50
== END 2020-05-31 13:19 | DRG 871 ==
LOC: ER 12:32 → EH 18:51 → 3S 05-20
PROVIDERS: ADMIT Hospitalist; ATTEND Registered Nurse
DX: A41.81 Sepsis due to Enterococcus (principal); G93.41 Metabolic encephalopathy; E43 Unspecified severe protein-calorie malnutrition; N17.9 Acute kidney failure, unspecified; I50.22 Chronic systolic (congestive) heart failure; I42.0 Dilated cardiomyopathy; I48.11 Longstanding persistent atrial fibrillation; N39.0 Urinary tract infection, site not specified; R65.20 Severe sepsis without septic shock; Z66 Do not resuscitate; Z78.1 Physical restraint status; K70.9 Alcoholic liver disease, unspecified; E16.2 Hypoglycemia, unspecified; I73.9 Peripheral vascular disease, unspecified; D69.6 Thrombocytopenia, unspecified; R00.1 Bradycardia, unspecified; T68.XXXA Hypothermia, initial encounter; I65.29 Occlusion and stenosis of unspecified carotid artery; E03.9 Hypothyroidism, unspecified; I11.0 Hypertensive heart disease with heart failure; K72.10 Chronic hepatic failure without coma; R63.4 Abnormal weight loss; F03.90 Unspecified dementia, unspecified severity, without behavioral disturbance, psychotic disturbance, mood disturbance, and anxiety; D50.9 Iron deficiency anemia, unspecified; N40.1 Benign prostatic hyperplasia with lower urinary tract symptoms; R41.0 Disorientation, unspecified; K70.10 Alcoholic hepatitis without ascites; R33.9 Retention of urine, unspecified; Z68.20 Body mass index [BMI] 20.0-20.9, adult; Z79.899 Other long term (current) drug therapy; Z79.82 Long term (current) use of aspirin; Z87.891 Personal history of nicotine dependence
CPT/HCPCS: 36415; 70551; 71045; 80048; 80053; 80076; 80162; 80202; 81001; 82140; 82607; 82728; 82746; 82803; 82962; 83540; 83550; 83605; 83735; 83880; 84439; 84443; 85025; 85027; 85045; 85610; 87040; 87086; 87088; 87186; 93005; 93010; 96361; 96365; 96367; 99285; J0696; J1630; J1940; J2920; J3370; J3480; J3490; J7030; J7042; J7060; P9047